=== PATIENT | male | born 1950 | race Caucasian/White ===

== ENCOUNTER 2020-04-16 11:22 | Inpatient (IN) | payer MEDICARE, OTHER ==
[~2020-04-16] VITALS: Ht 172.7 cm; Wt 64.4 kg
[2020-04-16] MEDS ORDERED: HALOPERIDOL LACTATE 5 MG/1 ML VIAL ONE (11:43)
[2020-04-16] MEDS ORDERED: HALOPERIDOL LACTATE 5 MG/1 ML VIAL IM ONE (11:45)
[2020-04-16] MEDS ORDERED: DIPH25CA83 PO (11:47)
[2020-04-16] MEDS ORDERED: DOCU100C36 PO (11:47)
[2020-04-16] MEDS ORDERED: LEVOTHYROXIN PO (11:47)
[2020-04-16] MEDS ORDERED: DIGO125T PO (11:47)
[2020-04-16] MEDS ORDERED: LISI10TA5 PO (11:47)
[2020-04-16] MEDS ORDERED: ACET-2154 PO (11:47)
[2020-04-16] MEDS ORDERED: SIMV-46 PO (11:47)
[2020-04-16] MEDS ORDERED: APIX5TAB PO (11:47)
[2020-04-16 11:54] LABS: BASOPHILS # (AUTO) 0.1 K/uL (0.0-8.0); BASOPHILS % (AUTO) 0.6 % (0.0-2.0); EOSINOPHILS % (AUTO) 0.4 % (0.0-7.0); HEMATOCRIT 40.8 % (36.7-47.1); HEMOGLOBIN 13.6 g/dL (12.5-16.3); LYMPHOCYTES # (AUTO) 1.4 K/uL (20.0-40.0); LYMPHOCYTES % (AUTO) 17.7 % (20.5-51.5); MEAN CORPUSCULAR HEMOGLOBIN 30.7 uug (23.8-33.4); MEAN CORPUSCULAR HGB CONC 33 g/dL (32.5-36.3); MEAN CORPUSCULAR VOLUME 92.4 fL (73.0-96.2); MONOCYTES # (AUTO) 0.6 K/uL (2.0-10.0); MONOCYTES % (AUTO) 7.4 % (0.0-11.0); NEUTROPHILS % (AUTO) 73.9 % (38.5-71.5); PLATELET COUNT (AUTO) 358 K/uL (152-348); RED BLOOD CELL COUNT(AUTO) 4.42 MIL/uL (4.06-5.63); WHITE BLOOD COUNT (AUTO) 8.1 K/uL (3.6-10.2)
[2020-04-16 12:01] LABS: CARBON DIOXIDE 27 mmol/L (21-32); CHLORIDE 107 mmol/L (98-107); CREATININE 0.9 mg/dL (0.6-1.3); GLUCOSE 117 mg/dL (74-106); UREA NITROGEN, BLOOD 23 mg/dL (7-18)
[2020-04-16 12:07] LABS: ACETAMINOPHEN < 2.0 ug/mL (10-30); ALANINE AMINOTRANSFERASE 28 U/L (16-63); ALKALINE PHOSPHATASE 67 U/L (50-136); ASPARTATE AMINOTRANSFERASE 31 U/L (15-37); BILIRUBIN,DIRECT 0.2 mg/dL (0.0-0.2); BILIRUBIN,TOTAL 0.5 mg/dL (0.2-1.0); TOTAL PROTEIN, SERUM 6.9 g/dL (6.4-8.2)
[2020-04-16 12:09] LABS: ETHANOL < 3 MG/DL (0-0)
[2020-04-16] MEDS ORDERED: LORAZEPAM 2 MG/1 ML VIAL IM ONE (12:15)
[2020-04-16] MEDS ORDERED: diphenhydrAMINE 50 MG/1 ML VIAL IM ONE (12:15)
[2020-04-16] MEDS ORDERED: diphenhydrAMINE 50 MG/1 ML VIAL ONE (12:17)
[2020-04-16] MEDS ORDERED: LORAZEPAM 2 MG/1 ML VIAL ONE (12:18)
[2020-04-16] MEDS ORDERED: MAG HYDROX/AL HYDROX/SIMETH 30 ML LIQUID UDC PO PRN (13:45)
[2020-04-16] MEDS ORDERED: ACETAMINOPHEN 325 MG TABLET PO PRN (13:45)
[2020-04-16] MEDS ORDERED: MAGNESIUM HYDROXIDE 30 ML LIQUID UDC PO PRN (13:45)
[2020-04-16] MEDS ORDERED: ACETAMINOPHEN 325 MG TABLET PO SCH (14:45)
[2020-04-16] MEDS ORDERED: diphenhydrAMINE 25 MG CAP PO PRN (16:30)
[2020-04-16] MEDS: APIXABAN 5 MG TABLET PO SCH (16:39)
[2020-04-16] MEDS ORDERED: DOCUSATE SODIUM 100 MG CAPSULE PO PRN (17:00)
[2020-04-16] MEDS: SIMVASTATIN 20 MG TABLET PO SCH (17:04)
[2020-04-16 19:00] VITALS: BP 167/86
[2020-04-16 20:27] VITALS: BP 160/80
[2020-04-17] MEDS: LEVOTHYROXINE SODIUM 50 MCG TABLET PO SCH (06:39)
[2020-04-17 07:30] VITALS: BP 132/74
[2020-04-17] MEDS: LISINOPRIL 10 MG TABLET PO SCH ×2 (08:32→09:00)
[2020-04-17] MEDS: APIXABAN 5 MG TABLET PO SCH ×3 (08:34→17:00)
[2020-04-17] MEDS ORDERED: HALOPERIDOL LACTATE 5 MG/1 ML VIAL IM ONE (09:45)
[2020-04-17] MEDS ORDERED: diphenhydrAMINE 50 MG/1 ML VIAL IM ONE (09:45)
[2020-04-17] MEDS ORDERED: LORAZEPAM 2 MG/1 ML VIAL IM ONE (09:45)
[2020-04-17] MEDS: risperiDONE 1 MG TABLET PO SCH ×2 (11:15→20:21)
[2020-04-17 16:00] VITALS: BP 145/79
[2020-04-17] MEDS: SIMVASTATIN 20 MG TABLET PO SCH (17:09)
[2020-04-17 20:14] VITALS: BP 133/83
[2020-04-18] MEDS: LEVOTHYROXINE SODIUM 50 MCG TABLET PO SCH (06:15)
[2020-04-18 07:30] VITALS: BP 144/66
[2020-04-18] MEDS: LISINOPRIL 10 MG TABLET PO SCH (09:00)
[2020-04-18] MEDS: risperiDONE 1 MG TABLET PO SCH ×2 (09:00→20:27)
[2020-04-18] MEDS: APIXABAN 5 MG TABLET PO SCH ×2 (09:00→17:00)
[2020-04-18] MEDS ORDERED: LORAZEPAM 2 MG/1 ML VIAL IM ONE (10:15)
[2020-04-18] MEDS ORDERED: HALOPERIDOL LACTATE 5 MG/1 ML VIAL IM ONE (10:15)
[2020-04-18] MEDS ORDERED: diphenhydrAMINE 50 MG/1 ML VIAL IM ONE (10:15)
[2020-04-18 16:00] VITALS: BP 134/77
[2020-04-18] MEDS: SIMVASTATIN 20 MG TABLET PO SCH (18:00)
[2020-04-18 20:00] VITALS: BP 133/86
[2020-04-19] MEDS: LEVOTHYROXINE SODIUM 50 MCG TABLET PO SCH (06:06)
[2020-04-19 07:30] VITALS: BP 136/80
[2020-04-19] MEDS: risperiDONE 1 MG TABLET PO SCH ×2 (09:35→21:11)
[2020-04-19] MEDS: LISINOPRIL 10 MG TABLET PO SCH (09:35)
[2020-04-19] MEDS: CLONAZEPAM 0.5 MG TABLET PO PRN (09:35)
[2020-04-19] MEDS: APIXABAN 5 MG TABLET PO SCH ×2 (09:42→17:00)
[2020-04-19] MEDS: DIGOXIN 125 MCG TABLET PO SCH (12:57)
[2020-04-19] MEDS: NICOTINE 21 MG/24HR PATCH TD SCH (14:18)
[2020-04-19 16:00] VITALS: BP 120/64
[2020-04-19] MEDS: SIMVASTATIN 20 MG TABLET PO SCH (18:00)
[2020-04-19] MEDS: TEMAZEPAM 7.5 MG CAPSULE PO PRN (22:21)
[2020-04-20 07:30] VITALS: BP 130/74
[2020-04-20] MEDS: LEVOTHYROXINE SODIUM 50 MCG TABLET PO SCH (07:45)
[2020-04-20] MEDS: APIXABAN 5 MG TABLET PO SCH ×2 (08:31→16:40)
[2020-04-20] MEDS: NICOTINE 21 MG/24HR PATCH TD SCH (08:31)
[2020-04-20] MEDS: risperiDONE 1 MG TABLET PO SCH ×2 (08:32→21:00)
[2020-04-20] MEDS: LISINOPRIL 10 MG TABLET PO SCH (08:32)
[2020-04-20] MEDS: DIGOXIN 125 MCG TABLET PO SCH (13:00)
[2020-04-20 16:50] VITALS: BP 123/69
[2020-04-20] MEDS: SIMVASTATIN 20 MG TABLET PO SCH (17:04)
[2020-04-20 19:57] VITALS: BP 130/62
[2020-04-21] MEDS: LEVOTHYROXINE SODIUM 50 MCG TABLET PO SCH (07:00)
[2020-04-21 07:30] VITALS: BP 135/67
[2020-04-21] MEDS: NICOTINE 21 MG/24HR PATCH TD SCH (08:28)
[2020-04-21] MEDS: LISINOPRIL 10 MG TABLET PO SCH (08:28)
[2020-04-21] MEDS: risperiDONE 1 MG TABLET PO SCH ×2 (08:28→20:35)
[2020-04-21] MEDS: APIXABAN 5 MG TABLET PO SCH ×2 (08:28→16:25)
[2020-04-21] MEDS: DIGOXIN 125 MCG TABLET PO SCH (12:21)
[2020-04-21 16:00] VITALS: BP 126/73
[2020-04-21] MEDS: SIMVASTATIN 20 MG TABLET PO SCH (17:03)
[2020-04-21 20:45] VITALS: BP 128/59
[2020-04-22] MEDS: LEVOTHYROXINE SODIUM 50 MCG TABLET PO SCH (06:28)
[2020-04-22 07:30] VITALS: BP 142/61
[2020-04-22] MEDS: NICOTINE 21 MG/24HR PATCH TD SCH (08:09)
[2020-04-22] MEDS: LISINOPRIL 10 MG TABLET PO SCH (08:09)
[2020-04-22] MEDS: APIXABAN 5 MG TABLET PO SCH ×2 (08:09→16:08)
[2020-04-22] MEDS: risperiDONE 1 MG TABLET PO SCH (08:09)
[2020-04-22] MEDS ORDERED: HALOPERIDOL 5 MG TABLET PO SCH (10:00)
[2020-04-22] MEDS ORDERED: HALOPERIDOL LACTATE 5 MG/1 ML VIAL IM PRN ×2 (10:00→11:00)
[2020-04-22] MEDS: CLONAZEPAM 0.5 MG TABLET PO PRN (10:42)
[2020-04-22] MEDS: DIGOXIN 125 MCG TABLET PO SCH (12:32)
[2020-04-22 15:20] VITALS: BP 125/66
[2020-04-22] MEDS: SIMVASTATIN 20 MG TABLET PO SCH (17:52)
[2020-04-22 20:00] VITALS: BP 125/71
[2020-04-22] MEDS: HALOPERIDOL 5 MG TABLET PO SCH (20:28)
[2020-04-23] MEDS: LEVOTHYROXINE SODIUM 50 MCG TABLET PO SCH (06:30)
[2020-04-23 07:30] VITALS: BP 150/86
[2020-04-23] MEDS: LISINOPRIL 10 MG TABLET PO SCH (08:03)
[2020-04-23] MEDS: APIXABAN 5 MG TABLET PO SCH ×2 (08:03→16:33)
[2020-04-23] MEDS: HALOPERIDOL 5 MG TABLET PO SCH ×2 (08:03→20:21)
[2020-04-23] MEDS: CLONAZEPAM 0.5 MG TABLET PO PRN (08:03)
[2020-04-23] MEDS: NICOTINE 21 MG/24HR PATCH TD SCH (08:04)
[2020-04-23] MEDS: DIGOXIN 125 MCG TABLET PO SCH (12:15)
[2020-04-23 16:10] VITALS: BP 120/73
[2020-04-23] MEDS: ENSURE ENLIVE (VAN) 240 ML LIQUID PO SCH (16:33)
[2020-04-23] MEDS: SIMVASTATIN 20 MG TABLET PO SCH (17:43)
[2020-04-23 20:00] VITALS: BP 114/53
[2020-04-24] MEDS: LEVOTHYROXINE SODIUM 50 MCG TABLET PO SCH (07:01)
[2020-04-24 07:30] VITALS: BP 127/44
[2020-04-24] MEDS: ENSURE ENLIVE (VAN) 240 ML LIQUID PO SCH ×2 (08:00→17:59)
[2020-04-24] MEDS: HALOPERIDOL 5 MG TABLET PO SCH ×3 (09:00→21:54)
[2020-04-24] MEDS: LISINOPRIL 10 MG TABLET PO SCH (09:54)
[2020-04-24] MEDS: NICOTINE 21 MG/24HR PATCH TD SCH (09:54)
[2020-04-24] MEDS: APIXABAN 5 MG TABLET PO SCH ×2 (10:11→17:59)
[2020-04-24] MEDS: DIGOXIN 125 MCG TABLET PO SCH (13:42)
[2020-04-24 16:00] VITALS: BP 119/63
[2020-04-24] MEDS: SIMVASTATIN 20 MG TABLET PO SCH (18:00)
[2020-04-24 20:10] VITALS: BP 120/53
[2020-04-25] MEDS: LEVOTHYROXINE SODIUM 50 MCG TABLET PO SCH (06:46)
[2020-04-25 07:30] VITALS: BP 119/64
[2020-04-25] MEDS: LISINOPRIL 10 MG TABLET PO SCH (08:49)
[2020-04-25] MEDS: HALOPERIDOL 5 MG TABLET PO SCH ×2 (08:49→20:29)
[2020-04-25] MEDS: NICOTINE 21 MG/24HR PATCH TD SCH (08:50)
[2020-04-25] MEDS: APIXABAN 5 MG TABLET PO SCH ×2 (11:43→18:32)
[2020-04-25] MEDS: DIGOXIN 125 MCG TABLET PO SCH (12:54)
[2020-04-25] MEDS: ENSURE ENLIVE (VAN) 240 ML LIQUID PO SCH ×2 (12:58→18:33)
[2020-04-25 16:35] VITALS: BP 109/66
[2020-04-25] MEDS: SIMVASTATIN 20 MG TABLET PO SCH (18:32)
[2020-04-25 21:05] VITALS: BP 130/68
[2020-04-26] MEDS: CLONAZEPAM 0.5 MG TABLET PO PRN (02:00)
[2020-04-26] MEDS: LEVOTHYROXINE SODIUM 50 MCG TABLET PO SCH (06:48)
[2020-04-26 07:30] VITALS: BP 108/50
[2020-04-26] MEDS: ENSURE ENLIVE (VAN) 240 ML LIQUID PO SCH ×2 (08:23→18:01)
[2020-04-26] MEDS: NICOTINE 21 MG/24HR PATCH TD SCH (08:36)
[2020-04-26] MEDS: HALOPERIDOL 5 MG TABLET PO SCH ×2 (08:37→20:44)
[2020-04-26] MEDS: APIXABAN 5 MG TABLET PO SCH ×2 (08:41→18:03)
[2020-04-26] MEDS: LISINOPRIL 10 MG TABLET PO SCH (08:42)
[2020-04-26] MEDS: DIGOXIN 125 MCG TABLET PO SCH (12:36)
[2020-04-26 15:27] VITALS: BP 112/61
[2020-04-26] MEDS: SIMVASTATIN 20 MG TABLET PO SCH (18:01)
[2020-04-26 20:00] VITALS: BP 126/60
[2020-04-27] MEDS: LEVOTHYROXINE SODIUM 50 MCG TABLET PO SCH (06:37)
[2020-04-27 07:30] VITALS: BP 121/77
[2020-04-27] MEDS: ENSURE ENLIVE (VAN) 240 ML LIQUID PO SCH ×2 (08:45→17:31)
[2020-04-27] MEDS: HALOPERIDOL 5 MG TABLET PO SCH ×2 (08:47→20:57)
[2020-04-27] MEDS: LISINOPRIL 10 MG TABLET PO SCH (08:48)
[2020-04-27] MEDS: NICOTINE 21 MG/24HR PATCH TD SCH (08:48)
[2020-04-27] MEDS: APIXABAN 5 MG TABLET PO SCH ×2 (09:04→17:38)
[2020-04-27] MEDS: DIGOXIN 125 MCG TABLET PO SCH (13:26)
[2020-04-27] MEDS: CLONAZEPAM 0.5 MG TABLET PO PRN (13:52)
[2020-04-27 16:00] VITALS: BP 137/66
[2020-04-27 17:06] LABS: BASOPHILS # (AUTO) 0.1 K/uL (0.0-8.0); BASOPHILS % (AUTO) 1.3 % (0.0-2.0); EOSINOPHILS # (AUTO) 0.1 K/uL (0.0-0.7); EOSINOPHILS % (AUTO) 1.1 % (0.0-7.0); HEMATOCRIT 45.1 % (36.7-47.1); HEMOGLOBIN 14.6 g/dL (12.5-16.3); LYMPHOCYTES # (AUTO) 2.1 K/uL (20.0-40.0); LYMPHOCYTES % (AUTO) 28.5 % (20.5-51.5); MEAN CORPUSCULAR HEMOGLOBIN 30.2 uug (23.8-33.4); MEAN CORPUSCULAR HGB CONC 32 g/dL (32.5-36.3); MEAN CORPUSCULAR VOLUME 93.6 fL (73.0-96.2); MONOCYTES # (AUTO) 0.8 K/uL (2.0-10.0); MONOCYTES % (AUTO) 11.2 % (0.0-11.0); NEUTROPHILS # (AUTO) 4.4 K/uL (1.8-8.9); NEUTROPHILS % (AUTO) 57.9 % (38.5-71.5); PLATELET COUNT (AUTO) 324 K/uL (152-348); RED BLOOD CELL COUNT(AUTO) 4.82 MIL/uL (4.06-5.63); WHITE BLOOD COUNT (AUTO) 7.5 K/uL (3.6-10.2)
[2020-04-27 17:13] LABS: BILIRUBIN,TOTAL 0.2 mg/dL (0.2-1.0); CREATININE 0.9 mg/dL (0.6-1.3); POTASSIUM 4.6 mmol/L (3.5-5.1); TOTAL PROTEIN, SERUM 7.6 g/dL (6.4-8.2)
[2020-04-27] MEDS: SIMVASTATIN 20 MG TABLET PO SCH (17:31)
[2020-04-27 20:00] VITALS: BP 127/67
[2020-04-28] MEDS: LEVOTHYROXINE SODIUM 50 MCG TABLET PO SCH (06:15)
[2020-04-28 07:30] VITALS: BP 109/64
[2020-04-28] MEDS: ENSURE ENLIVE (VAN) 240 ML LIQUID PO SCH ×2 (08:05→16:52)
[2020-04-28] MEDS: NICOTINE 21 MG/24HR PATCH TD SCH (08:19)
[2020-04-28] MEDS: HALOPERIDOL 5 MG TABLET PO SCH ×2 (08:19→20:35)
[2020-04-28] MEDS: APIXABAN 5 MG TABLET PO SCH ×2 (08:20→17:25)
[2020-04-28] MEDS: LISINOPRIL 10 MG TABLET PO SCH (08:34)
[2020-04-28] MEDS: DIGOXIN 125 MCG TABLET PO SCH (12:24)
[2020-04-28 15:22] VITALS: BP 110/54
[2020-04-28] MEDS: SIMVASTATIN 20 MG TABLET PO SCH (17:24)
[2020-04-28 20:26] VITALS: BP 107/58
[2020-04-29] MEDS: LEVOTHYROXINE SODIUM 50 MCG TABLET PO SCH (06:26)
[2020-04-29 07:30] VITALS: BP 112/60
[2020-04-29] MEDS: ENSURE ENLIVE (VAN) 240 ML LIQUID PO SCH ×2 (08:00→16:45)
[2020-04-29] MEDS: LISINOPRIL 10 MG TABLET PO SCH ×2 (09:00→09:47)
[2020-04-29] MEDS: NICOTINE 21 MG/24HR PATCH TD SCH (09:00)
[2020-04-29] MEDS: HALOPERIDOL 5 MG TABLET PO SCH ×3 (09:00→21:10)
[2020-04-29] MEDS: APIXABAN 5 MG TABLET PO SCH ×3 (09:00→16:44)
[2020-04-29] MEDS: DIGOXIN 125 MCG TABLET PO SCH (12:07)
[2020-04-29 15:45] VITALS: BP 110/56
[2020-04-29] MEDS: SIMVASTATIN 20 MG TABLET PO SCH (17:31)
[2020-04-29 20:00] VITALS: BP 116/69
[2020-04-29] MEDS: TEMAZEPAM 7.5 MG CAPSULE PO PRN ×2 (21:11→21:28)
[2020-04-30] MEDS: LEVOTHYROXINE SODIUM 50 MCG TABLET PO SCH (06:20)
[2020-04-30 07:48] VITALS: BP 122/77
[2020-04-30] MEDS: ENSURE ENLIVE (VAN) 240 ML LIQUID PO SCH ×2 (08:00→17:06)
[2020-04-30] MEDS: HALOPERIDOL 5 MG TABLET PO SCH ×2 (08:35→21:07)
[2020-04-30] MEDS: CLONAZEPAM 0.5 MG TABLET PO PRN (08:36)
[2020-04-30] MEDS: APIXABAN 5 MG TABLET PO SCH ×2 (08:36→17:00)
[2020-04-30] MEDS: LISINOPRIL 10 MG TABLET PO SCH (08:36)
[2020-04-30] MEDS: NICOTINE 21 MG/24HR PATCH TD SCH (08:37)
[2020-04-30] MEDS: DIGOXIN 125 MCG TABLET PO SCH (13:00)
[2020-04-30] MEDS: CLONAZEPAM 0.5 MG TABLET PO SCH ×2 (13:00→17:00)
[2020-04-30] MEDS: VALPROIC ACID 250 MG/5 ML LIQUID UDC PO SCH ×2 (15:06→21:07)
[2020-04-30 15:12] VITALS: BP 110/60
[2020-04-30] MEDS: SIMVASTATIN 20 MG TABLET PO SCH (17:07)
[2020-04-30 20:26] VITALS: BP 114/59
[2020-05-01] MEDS: LEVOTHYROXINE SODIUM 50 MCG TABLET PO SCH (07:02)
[2020-05-01 07:30] VITALS: BP 117/66
[2020-05-01] MEDS: ENSURE ENLIVE (VAN) 240 ML LIQUID PO SCH (08:00)
[2020-05-01] MEDS: HALOPERIDOL 5 MG TABLET PO SCH (08:29)
[2020-05-01] MEDS: CLONAZEPAM 0.5 MG TABLET PO SCH ×2 (08:29→12:12)
[2020-05-01] MEDS: VALPROIC ACID 250 MG/5 ML LIQUID UDC PO SCH (08:29)
[2020-05-01] MEDS: APIXABAN 5 MG TABLET PO SCH (08:31)
[2020-05-01] MEDS: NICOTINE 21 MG/24HR PATCH TD SCH (08:31)
[2020-05-01 09:00] VITALS: BP 117/66
[2020-05-01] MEDS: LISINOPRIL 10 MG TABLET PO SCH (09:00)
[2020-05-01] MEDS: DIGOXIN 125 MCG TABLET PO SCH (12:12)
== END 2020-05-01 15:01 | DRG 885 ==
LOC: ER 11:22 → GPS 13:33
PROVIDERS: ADMIT Psychiatry & Neurology Psychiatry; ATTEND Internal Medicine
PROC: 0HBRXZZ Excision of Toe Nail, External Approach (ICD-10-PCS; principal; 2020-04-29)
DX: F20.9 Schizophrenia, unspecified (principal); Z59.0 Homelessness; G20 Parkinson's disease; I48.0 Paroxysmal atrial fibrillation; Z79.01 Long term (current) use of anticoagulants; E03.9 Hypothyroidism, unspecified; E78.5 Hyperlipidemia, unspecified; F32.9 Major depressive disorder, single episode, unspecified; F41.9 Anxiety disorder, unspecified; I10 Essential (primary) hypertension; M20.41 Other hammer toe(s) (acquired), right foot; M20.42 Other hammer toe(s) (acquired), left foot; F29 Unspecified psychosis not due to a substance or known physiological condition; Z73.6 Limitation of activities due to disability; M62.81 Muscle weakness (generalized); F19.10 Other psychoactive substance abuse, uncomplicated; L60.3 Nail dystrophy; M79.672 Pain in left foot; M79.671 Pain in right foot
CPT/HCPCS: 36415; 80329; 83735; 85025; 93005; A4663; G0480; G0480-TC; J1200; J1630; J2060; Q0163

== ENCOUNTER 2020-07-23 16:29 | Inpatient (IN) | payer MEDICARE, OTHER ==
[2020-07-22 22:58] VITALS: BP 100/54
[~2020-07-23] VITALS: Ht 172.7 cm; Wt 70.8 kg
[~2020-07-23 16:29] MED LIST: ACET-2154 PO; APIX5TAB PO; DIGO125T PO; DIPH25CA83 PO; DOCU100C36 PO; LEVOTHYROXIN PO; LISI10TA5 PO; SIMV-46 PO
--- NOTE | 2020-07-23 16:44 | NUR ---
PT IS IN ROOM #2B. DR AGOSTO EVALUATED THE PT.
[2020-07-23] MEDS ORDERED: LORAZEPAM 2 MG/1 ML VIAL IM ONE (16:45)
[2020-07-23] MEDS ORDERED: diphenhydrAMINE 50 MG/1 ML VIAL IM ONE (16:45)
[2020-07-23] MEDS ORDERED: VALP250C3 PO (17:05)
[2020-07-23] MEDS ORDERED: MAGN400O6 PO (17:05)
[2020-07-23] MEDS ORDERED: HALO10TA13 PO (17:05)
[2020-07-23] MEDS ORDERED: MAG355OR18 PO (17:05)
[2020-07-23] MEDS ORDERED: CLON0.5T4 PO (17:05)
[2020-07-23] MEDS ORDERED: LORAZEPAM 2 MG/1 ML VIAL ONE (17:08)
[2020-07-23] MEDS ORDERED: diphenhydrAMINE 50 MG/1 ML VIAL ONE (17:08)
[2020-07-23] MEDS ORDERED: DILTIAZEM HCL 25 MG IV ONE (17:15)
[2020-07-23] MEDS ORDERED: DILTIAZEM HCL 25 MG IV IV ONE ×2 (17:15→17:45)
[2020-07-23] MEDS ORDERED: IV NORMAL SALINE 1000 ML BAG IV ONE (17:15)
[2020-07-23 17:27] LABS: BASOPHILS # (AUTO) 0.1 K/uL (0.0-8.0); BASOPHILS % (AUTO) 0.5 % (0.0-2.0); EOSINOPHILS % (AUTO) 0.3 % (0.0-7.0); HEMATOCRIT 45.3 % (36.7-47.1); HEMOGLOBIN 15.6 g/dL (12.5-16.3); LYMPHOCYTES # (AUTO) 2.3 K/uL (20.0-40.0); LYMPHOCYTES % (AUTO) 23.6 % (20.5-51.5); MEAN CORPUSCULAR HEMOGLOBIN 32.6 uug (23.8-33.4); MEAN CORPUSCULAR HGB CONC 34 g/dL (32.5-36.3); MEAN CORPUSCULAR VOLUME 94.8 fL (73.0-96.2); MONOCYTES # (AUTO) 0.9 K/uL (2.0-10.0); NEUTROPHILS # (AUTO) 6.6 K/uL (1.8-8.9); NEUTROPHILS % (AUTO) 66.6 % (38.5-71.5); PLATELET COUNT (AUTO) 254 K/uL (152-348); RED BLOOD CELL COUNT(AUTO) 4.78 MIL/uL (4.06-5.63); WHITE BLOOD COUNT (AUTO) 9.9 K/uL (3.6-10.2)
[2020-07-23] MEDS: NICOTINE 21 MG/24HR PATCH TD SCH (17:30)
[2020-07-23 17:45] LABS: ALANINE AMINOTRANSFERASE 16 U/L (16-63); ALKALINE PHOSPHATASE 46 U/L (50-136); ASPARTATE AMINOTRANSFERASE 11 U/L (15-37); BILIRUBIN,DIRECT 0.1 mg/dL (0.0-0.2); BILIRUBIN,TOTAL 0.4 mg/dL (0.2-1.0); CARBON DIOXIDE 26 mmol/L (21-32); CHLORIDE 101 mmol/L (98-107); ETHANOL < 3 MG/DL (0-0); GLUCOSE 114 mg/dL (74-106); POTASSIUM 4.1 mmol/L (3.5-5.1); TOTAL PROTEIN, SERUM 8.6 g/dL (6.4-8.2); UREA NITROGEN, BLOOD 16 mg/dL (7-18)
[2020-07-23 17:46] LABS: ACETAMINOPHEN < 2.0 ug/mL (10-30)
[2020-07-23 18:29] LABS: *BILIRUBIN,URIN NEGATIVE (NEGATIVE); *BLOOD, URINE NEGATIVE (NEGATIVE); *CLARITY,URINE CLEAR (CLEAR); *COLOR,URINE YELLOW (YELLOW); *KETONES,URINE NEGATIVE (NEGATIVE); *UROBILINOGEN,URINE 0.2 E.U./dl (NORMAL); LEUKOCYTE ESTERASE ,URINE NEGATIVE (NEGATIVE); NITRITE, URINE NEGATIVE (NEGATIVE); UGLUCOSE NEGATIVE (NEGATIVE)
[2020-07-23] MEDS ORDERED: DIGOXIN 500 MCG/2 ML AMP IV ONE (18:30)
[2020-07-23 18:32] LABS: *AMPHETAMINE, URINE NEGATIVE (NEGATIVE); *CANNABINOID, URINE NEGATIVE (NEGATIVE); *COCCAINE, URINE NEGATIVE (NEGATIVE); *OPIATE, URINE NEGATIVE (NEGATIVE); *PHENCYCLIDINE SCREEN,URINE NEGATIVE (NEGATIVE)
[2020-07-23] MEDS ORDERED: DIGOXIN 500 MCG/2 ML AMP ONE (18:43)
[2020-07-23] MEDS ORDERED: HALOPERIDOL LACTATE 5 MG/1 ML VIAL IM ONE (19:00)
[2020-07-23] MEDS ORDERED: HALOPERIDOL LACTATE 5 MG/1 ML VIAL ONE (19:02)
--- NOTE | 2020-07-23 19:06 | NUR ---
REPORT GIVEN TO SCHOOL ATTENDANCE SECRETARY RN.
--- NOTE | 2020-07-23 19:30 | NUR ---
Security at bedside sitting with patient, patient exhibiting aggressive outbursts and patient keeps getting out of bed and poses a fall risk. ERMD aware
[2020-07-23] MEDS ORDERED: MAGNESIUM HYDROXIDE 30 ML LIQUID UDC PO PRN ×2 (19:45)
[2020-07-23] MEDS ORDERED: Z GUARD REMEDY PASTE 57 GM TUBE TOP PRN (19:45)
[2020-07-23] MEDS: CLONAZEPAM 0.5 MG TABLET PO SCH (19:45)
[2020-07-23] MEDS ORDERED: MAG HYDROX/AL HYDROX/SIMETH 30 ML LIQUID UDC PO PRN (19:45)
[2020-07-23] MEDS: LISINOPRIL 10 MG TABLET PO SCH (19:45)
[2020-07-23] MEDS: ACETAMINOPHEN 325 MG TABLET PO SCH (19:45)
[2020-07-23] MEDS ORDERED: SIMVASTATIN 20 MG TABLET PO SCH (19:45)
[2020-07-23] MEDS ORDERED: ONDANSETRON 4 MG/2 ML VIAL IV PRN (19:45)
[2020-07-23] MEDS ORDERED: ACETAMINOPHEN 325 MG TABLET PO PRN (19:45)
--- NOTE | 2020-07-23 20:24 | NUR ---
Patient in bed resting with eyes closed, VSS, NAD
--- NOTE | 2020-07-23 21:00 | NUR ---
Patient in bed asleep, but arousable. VSS, NAD. Will continue to monitor.
--- NOTE | 2020-07-23 21:39 | NUR ---
Report given to ANDREA Márquez. Patient pending COVID test. Will continue to observe, and monitor until lab has resulted test.
--- NOTE | 2020-07-23 21:39 | NUR ---
Report received from Gerardo in ER. Waiting for patient to be transported.
[2020-07-23] MEDS ORDERED: ACETAMINOPHEN 325 MG TABLET ONE (22:11)
[2020-07-23] MEDS ORDERED: SIMVASTATIN 10 MG TABLET ONE (22:12)
[2020-07-23] MEDS ORDERED: CLONAZEPAM 0.5 MG TABLET ONE (22:12)
--- NOTE | 2020-07-23 22:55 | NUR ---
Patient received in Room 308 from Gerardo MENDEZ. Patient stable. Will continue to monitor.
--- NOTE | 2020-07-23 22:58 | NUR ---
Patient transported to TELE in stable condition.
[2020-07-23] MEDS: HALOPERIDOL 5 MG TABLET PO SCH (23:00)
[2020-07-23] MEDS ORDERED: DOCUSATE SODIUM 250 MG CAPSULE PO SCH (23:00)
[2020-07-23] MEDS ORDERED: DOCUSATE SODIUM 250 MG CAPSULE PO PRN (23:15)
[2020-07-23] MEDS: DIGOXIN 125 MCG TABLET PO SCH (23:17)
--- NOTE | 2020-07-23 23:20 | NUR ---
Pts haldol/digoxin were held due to patient being lethargic and not being able to take pills. BP at the time was 106/48. Will continue to assess and monitor.
--- NOTE | 2020-07-24 | NUR ---
Patient asleep but easily awakened. VSS. NAD. Will continue to monitor.
[2020-07-24 00:08] VITALS: BP 104/48
[2020-07-24] MEDS: LISINOPRIL 10 MG TABLET PO SCH ×3 (00:13→08:37)
[2020-07-24] MEDS: ACETAMINOPHEN 325 MG TABLET PO SCH ×6 (00:14→15:59)
--- NOTE | 2020-07-24 01:26 | NUR ---
Pts lisinopril was held due to the patient being too sedated. BP at time of hold was 104/48 - temp - 98.1 pulse - 98 rr- 18. Will continue to monitor and assess.
--- NOTE | 2020-07-24 02:00 | NUR ---
Patient asleep but awakens easily to stimulus/sound. No signs of pain. VSS. HR hovering in the 60s, 65 at the moment. Will continue to monitor and assess.
--- NOTE | 2020-07-24 03:45 | NUR ---
Pts Tylenol was held due to the patient being too sedated and at risk for aspiration. Temperature at the time of hold was 97.6 Will continue to monitor and assess.
[2020-07-24 06:19] LABS: BASOPHILS % (AUTO) 0.4 % (0.0-2.0); EOSINOPHILS # (AUTO) 0.2 K/uL (0.0-0.7); EOSINOPHILS % (AUTO) 2.5 % (0.0-7.0); HEMATOCRIT 37.5 % (36.7-47.1); LYMPHOCYTES # (AUTO) 3.3 K/uL (20.0-40.0); LYMPHOCYTES % (AUTO) 44.5 % (20.5-51.5); MEAN CORPUSCULAR HGB CONC 35 g/dL (32.5-36.3); MEAN CORPUSCULAR VOLUME 95.5 fL (73.0-96.2); MONOCYTES # (AUTO) 0.6 K/uL (2.0-10.0); MONOCYTES % (AUTO) 7.7 % (0.0-11.0); NEUTROPHILS # (AUTO) 3.4 K/uL (1.8-8.9); NEUTROPHILS % (AUTO) 44.9 % (38.5-71.5); PLATELET COUNT (AUTO) 213 K/uL (152-348); RED BLOOD CELL COUNT(AUTO) 3.93 MIL/uL (4.06-5.63); WHITE BLOOD COUNT (AUTO) 7.5 K/uL (3.6-10.2)
--- NOTE | 2020-07-24 06:20 | NUR ---
Pt has been asleep but easily awoken to touch, name. No reports of pain, no distress, VSS, HOB elevated, no SOB. IV patent. Will endorse to oncoming nurse.
[2020-07-24 06:46] LABS: THYROID STIMULATING HORMONE 2.082 mIU/mL (0.358-3.740)
[2020-07-24 06:48] LABS: BILIRUBIN,TOTAL 0.5 mg/dL (0.2-1.0); PHOSPHOROUS 4.1 mg/dL (2.5-4.9); POTASSIUM 4.4 mmol/L (3.5-5.1); TOTAL PROTEIN, SERUM 6.4 g/dL (6.4-8.2)
[2020-07-24] MEDS ORDERED: LEVOTHYROXINE SODIUM 50 MCG TABLET PO SCH (07:00)
--- NOTE | 2020-07-24 07:30 | NUR ---
Patient received resting in bed. Patient is really sedated and sleepy. Patient has a 1:1 sitter . There is no sign of distress noted at this time. Safety measures are in place, bed in the lowest position, locked with alarm activated. will continue to monitor.
[2020-07-24] MEDS: NICOTINE 21 MG/24HR PATCH TD SCH (08:35)
[2020-07-24] MEDS: CLONAZEPAM 0.5 MG TABLET PO SCH ×2 (08:36→12:10)
[2020-07-24] MEDS: HALOPERIDOL 5 MG TABLET PO SCH (08:36)
[2020-07-24] MEDS: DIGOXIN 125 MCG TABLET PO SCH (08:37)
[2020-07-24 08:38] VITALS: BP 107/65
[2020-07-24] MEDS ORDERED: VALPROIC ACID 250 MG CAPSULE PO SCH (09:00)
[2020-07-24] MEDS ORDERED: APIXABAN 5 MG TABLET PO SCH (11:00)
[2020-07-24 11:29] VITALS: BP 110/52
--- NOTE | 2020-07-24 12:30 | NUR ---
Patient was a little agitated, he refused to answer any questions and was yelling obscenities at the nursing staff. Gave all his medications. Will continue to monitor.
[2020-07-24 15:02] VITALS: BP 94/46
--- NOTE | 2020-07-24 17:00 | NUR ---
All medications given as ordered, therapeutic communication was encouraged with patient at all times. Patient discharged from the medical surgical unit and will be admitted to the [facility] unit on a 5150 hold. All discharge paperwork completed. Will continue to monitor patient until report is given to the change of shift nurse.
== END 2020-07-24 16:53 | DRG 309 ==
LOC: ER 16:31 → TELE3 22:38 → MEDSURG3 07-24 13:11
PROVIDERS: ADMIT Internal Medicine; ATTEND Internal Medicine
DX: I48.0 Paroxysmal atrial fibrillation (principal); D68.69 Other thrombophilia; I48.92 Unspecified atrial flutter; F20.9 Schizophrenia, unspecified; F32.9 Major depressive disorder, single episode, unspecified; F41.9 Anxiety disorder, unspecified; I10 Essential (primary) hypertension; Z79.01 Long term (current) use of anticoagulants
CPT/HCPCS: 36415; 70030-TC; 71045; 83735; 84100; 84443; 85025; 85730; 93005; 93307; G0378; G0480; J1160; J1200; J1630; J2060; J3490

== ENCOUNTER 2020-07-24 17:18 | Inpatient (IN) | payer MEDICARE, OTHER ==
[~2020-07-24] VITALS: Ht 177.8 cm; Wt 71.2 kg
--- NOTE | 2020-07-24 17:00 | NUR ---
Patient was discharged from the medical surgical floor and placed into [facility] overflow. He is now resting in bed. Initial assessment done but patient is not a good historian. He has been sleeping intermittently throughout the day. All medications given as ordered and therapeutic communication reinforced. Belongings list done. Will endorse to the oncoming nurse.
[~2020-07-24 17:18] MED LIST changes: +CLON0.5T4 PO; -DIPH25CA83 PO; +HALO10TA13 PO; +MAG355OR18 PO; +MAGN400O6 PO; +VALP250C3 PO
[2020-07-24] MEDS ORDERED: ACETAMINOPHEN 325 MG TABLET PO PRN (17:30)
[2020-07-24] MEDS ORDERED: LORAZEPAM 0.5 MG TABLET PO PRN (17:30)
[2020-07-24] MEDS ORDERED: MAG HYDROX/AL HYDROX/SIMETH 30 ML LIQUID UDC PO PRN ×2 (17:30→18:30)
[2020-07-24] MEDS ORDERED: MAGNESIUM HYDROXIDE 30 ML LIQUID UDC PO PRN ×2 (17:30→18:30)
[2020-07-24 18:02] VITALS: BP 104/56
[2020-07-24] MEDS ORDERED: ACETAMINOPHEN 325 MG TABLET PO SCH (18:30)
[2020-07-24] MEDS ORDERED: DOCUSATE SODIUM 100 MG CAPSULE PO PRN (18:30)
--- NOTE | 2020-07-24 19:30 | NUR ---
Received patient sleeping intermittently in bed. Engages in conversation when approached. Sitter at bed side and safety measures in place. Will continue to monitor.
--- NOTE | 2020-07-24 19:40 | NUR ---
Per pharmacist Satish naqvi to give second Eliquis dose at 07/24
[2020-07-24] MEDS: SIMVASTATIN 20 MG TABLET PO SCH (20:08)
[2020-07-24] MEDS: APIXABAN 5 MG TABLET PO SCH (20:09)
[2020-07-24 20:12] VITALS: BP 109/58
[2020-07-24] MEDS ORDERED: DIVALPROEX 500 MG TABLET.DR PO SCH (21:00)
[2020-07-24] MEDS ORDERED: HALOPERIDOL 5 MG TABLET PO SCH (21:00)
[2020-07-24] MEDS ORDERED: VALPROIC ACID 250 MG CAPSULE PO SCH (21:00)
--- NOTE | 2020-07-24 22:10 | NUR ---
GPS: Received pt.from 3rd floor resting in bed at this time. Alert,answers simple questions when asked. Calm and cooperative at this time although refusing PO bedtime psych meds.despite explanation of risks vs benefits x3. Safe environment provided. Needs attended. Will continue to monitor.
[2020-07-25] MEDS: LEVOTHYROXINE SODIUM 50 MCG TABLET PO SCH (06:43)
[2020-07-25] MEDS: DIVALPROEX 500 MG TABLET.DR PO SCH ×2 (09:00→21:00)
[2020-07-25] MEDS: APIXABAN 5 MG TABLET PO SCH ×2 (09:00→17:00)
[2020-07-25] MEDS: LISINOPRIL 10 MG TABLET PO SCH (09:00)
[2020-07-25] MEDS: HALOPERIDOL 5 MG TABLET PO SCH ×2 (09:00→21:00)
[2020-07-25] MEDS: DIGOXIN 125 MCG TABLET PO SCH (09:00)
--- NOTE | 2020-07-25 09:10 | NUR ---
SW SNF CONTACT: TRACE contacted Deepak, admission coordinator at [facility] ([facility]) [address] [place] [address] P: [phone] who confirmed pt is able to return to the facility once stable for discharge.
--- NOTE | 2020-07-25 09:57 | NUR ---
TRACE INITIAL DISCHARGE PLAN: Pt will return to [facility] ([facility]) [address] [address] [place] [address] P: [phone] once stable for discharge. TRACE will help form a safe and proper discharge in collaboration with .
--- NOTE | 2020-07-25 11:38 | NUR ---
Firearms Report: Scuba Instructor completed and submitted a DOJ firearms report for 5150 danger to others and grave disability certification. A copy of report has been placed in patient chart.
[2020-07-25] MEDS: NICOTINE 21 MG/24HR PATCH TD SCH (12:09)
[2020-07-25] MEDS ORDERED: diphenhydrAMINE 50 MG/1 ML VIAL IM ONE (14:00)
[2020-07-25] MEDS ORDERED: HALOPERIDOL LACTATE 5 MG/1 ML VIAL IM ONE (14:00)
[2020-07-25] MEDS ORDERED: LORAZEPAM 2 MG/1 ML VIAL IM ONE (14:00)
--- NOTE | 2020-07-25 14:05 | NUR ---
GPS: Severe Agitation/Chemical restraint Pt noted with severe agitation, yelling, screaming, cursing and threatening staff. Attempted to provide diversional activities and allow to verbalize feelings. Pt. continued with violent outburst without provocation and posing aggressive/combative stance toward nursing staff. Pt. unable to follow directions and has poor impulse/anger management. Dr. Starks was paged by charge nurse and received chemical restraint order carried out by charge nurse.
--- NOTE | 2020-07-25 14:10 | NUR ---
GPS: chemical restraint intervention. 4x security on-site to assist as pt. continue to be combative, cursing and threatening. Pt. stated "I do not take medications motherfuckers!, Im going to kick your ass, I dont care what you give me I will still scream and yell" several other profanity words used repeatedly towards nsg staff and security personnel. IM Haldol, Ativan, Benadryl given as ordered by Dr. Starks. Due to pt. behaviors, nsg staff unable to assess full vitals signs. Will monitor respiratory rate. Addendum: 07/25/20 at 1547 by DEANNA DEMARCO RN Dr. Starks aware that pt. has refused his morning medications.
--- NOTE | 2020-07-25 14:10 | NUR ---
INDIVIDUAL INTERVENTION: Pt is verbally aggressive, yelling, screaming, banging the uribe. Security was called and pt was given an IM. Pt has been refusing medications and is psychotic.
--- NOTE | 2020-07-25 15:00 | NUR ---
GPS: Reassessment of chemical restraint: Pt. with intermittent yelling/screaming, slightly less aggressive. IM medication partially effective. Allowed nsg staff to take set of V/S. To be place on 1:1 sitter for safety. Will continue to monitor pt. safety and behavior.
[2020-07-25 16:00] VITALS: BP 99/48
[2020-07-25 20:00] VITALS: BP 102/54
[2020-07-25] MEDS: SIMVASTATIN 20 MG TABLET PO SCH (21:00)
--- NOTE | 2020-07-25 22:00 | NUR ---
Patient refused Haldol 10mg and depakote 500mg. multiple redirection given yet ineffective. will continue to monitor.
[2020-07-26] MEDS: LEVOTHYROXINE SODIUM 50 MCG TABLET PO SCH (06:49)
[2020-07-26 07:30] VITALS: BP 134/77
[2020-07-26] MEDS: NICOTINE 21 MG/24HR PATCH TD SCH (08:13)
[2020-07-26] MEDS: APIXABAN 5 MG TABLET PO SCH ×2 (08:15→17:00)
[2020-07-26] MEDS: DIVALPROEX 500 MG TABLET.DR PO SCH ×2 (08:15→21:00)
[2020-07-26] MEDS: DIGOXIN 125 MCG TABLET PO SCH (08:16)
[2020-07-26] MEDS: LISINOPRIL 10 MG TABLET PO SCH (08:16)
[2020-07-26] MEDS: HALOPERIDOL 5 MG TABLET PO SCH ×2 (08:16→21:00)
--- NOTE | 2020-07-26 11:31 | NUR ---
INDIVIDUAL INTERVENTION: Pt is currently on a 1:1 and was given IM on 08/25/20 and pt has been refusing medications. Pt is asleep and not easily roused by verbal cues.
[2020-07-26] MEDS: ENSURE WITH FIBER 237 ML LIQUID (CHOCOLATE) PO SCH (14:00)
[2020-07-26 16:00] VITALS: BP 124/84
[2020-07-26 20:31] VITALS: BP 119/85
[2020-07-26] MEDS: SIMVASTATIN 20 MG TABLET PO SCH (21:00)
--- NOTE | 2020-07-26 21:44 | NUR ---
GPS - Rn Patient a/ox2, respond verbally and clearly able to make needs known. Pt noncooperative with routine medications, refused and said 'I have never took medication before, they do not do you good' why don't you take them rather! Pt insist he is not taking meds. Patient was becoming agitated and rising his voice at this senior copywriter. Re-offered later and he said no. Patient at this time calm and lying in bed. Will monitor with anticipating changes or behavior increase.
[2020-07-27] MEDS: TEMAZEPAM 7.5 MG CAPSULE PO PRN (02:30)
[2020-07-27] MEDS: LEVOTHYROXINE SODIUM 50 MCG TABLET PO SCH (06:50)
[2020-07-27 07:30] VITALS: BP 133/85
[2020-07-27] MEDS: DIVALPROEX 500 MG TABLET.DR PO SCH ×2 (08:20→20:21)
[2020-07-27] MEDS: HALOPERIDOL 5 MG TABLET PO SCH ×2 (08:20→20:21)
[2020-07-27] MEDS: LISINOPRIL 10 MG TABLET PO SCH (08:20)
[2020-07-27] MEDS: NICOTINE 21 MG/24HR PATCH TD SCH (08:21)
[2020-07-27] MEDS: DIGOXIN 125 MCG TABLET PO SCH (08:21)
[2020-07-27] MEDS: APIXABAN 5 MG TABLET PO SCH ×2 (08:32→16:02)
[2020-07-27] MEDS: ENSURE WITH FIBER 237 ML LIQUID (CHOCOLATE) PO SCH (08:40)
[2020-07-27 16:33] VITALS: BP 99/79
--- NOTE | 2020-07-27 17:58 | NUR ---
Received patient in his room, calm cooperative, patient appears to be anxious, reported of being non compliant with medication and RIESE was filed, spoke with patient about his concern on medication, and re assure of the benefits of the medication, patient took his medication today, took shower , assisted with ADl, met patients need, no sign of any Distress, denies Si and HI, will continue monitor Q 15 minutes for safety
[2020-07-27 20:05] VITALS: BP 106/58
[2020-07-27] MEDS: SIMVASTATIN 20 MG TABLET PO SCH (20:21)
--- NOTE | 2020-07-28 05:47 | NUR ---
GPS: Remain calm and cooperative, patient appears to be anxious, compliant with medications. assisted with ADl, met patients need, no sign of any Distress, denies Si and HI, resting in his bed comfortably.
[2020-07-28] MEDS: LEVOTHYROXINE SODIUM 50 MCG TABLET PO SCH (06:44)
--- NOTE | 2020-07-28 06:50 | NUR ---
slept 7 hrs through the night.
[2020-07-28 07:52] VITALS: BP 102/56
[2020-07-28] MEDS: LISINOPRIL 10 MG TABLET PO SCH (09:00)
[2020-07-28] MEDS: NICOTINE 21 MG/24HR PATCH TD SCH (10:11)
[2020-07-28] MEDS: HALOPERIDOL 5 MG TABLET PO SCH ×2 (10:11→20:40)
[2020-07-28] MEDS: DIGOXIN 125 MCG TABLET PO SCH (10:11)
[2020-07-28] MEDS: DIVALPROEX 500 MG TABLET.DR PO SCH ×2 (10:11→20:40)
[2020-07-28] MEDS: APIXABAN 5 MG TABLET PO SCH ×2 (10:12→17:38)
[2020-07-28] MEDS: ENSURE WITH FIBER 237 ML LIQUID (CHOCOLATE) PO SCH (10:13)
[2020-07-28 16:27] VITALS: BP 130/49
[2020-07-28 20:21] VITALS: BP 118/51
[2020-07-28] MEDS: SIMVASTATIN 20 MG TABLET PO SCH (20:40)
--- NOTE | 2020-07-29 06:25 | NUR ---
Patient took his pm medications. A little while after, patient came to the nurses station and said " That is it, I am not going to take anymore medications. Do not bother to bring me any. I have had it with medications, they are poisoning me ". Patient refused his am Thyroid medication, and was easy to anger . Patient is labile. Total hours of sleep 7.30.
[2020-07-29] MEDS: LEVOTHYROXINE SODIUM 50 MCG TABLET PO SCH (06:38)
[2020-07-29 07:30] VITALS: BP 140/99
[2020-07-29] MEDS: DIGOXIN 125 MCG TABLET PO SCH (08:51)
[2020-07-29] MEDS: HALOPERIDOL 5 MG TABLET PO SCH ×4 (08:51→21:00)
[2020-07-29] MEDS: NICOTINE 21 MG/24HR PATCH TD SCH (08:51)
[2020-07-29] MEDS: APIXABAN 5 MG TABLET PO SCH ×2 (08:52→16:32)
[2020-07-29] MEDS: LISINOPRIL 10 MG TABLET PO SCH (08:52)
[2020-07-29] MEDS: ENSURE WITH FIBER 237 ML LIQUID (CHOCOLATE) PO SCH (08:54)
[2020-07-29] MEDS: DIVALPROEX 500 MG TABLET.DR PO SCH ×3 (08:55→21:00)
[2020-07-29] MEDS ORDERED: HALOPERIDOL DECANOATE 50 MG/1 ML AMPUL IM ONE (09:00)
--- NOTE | 2020-07-29 11:51 | NUR ---
TRACE PC Hearing: Patient had probable cause hearing today and it was upheld for grave disability.
[2020-07-29 16:00] VITALS: BP 129/107
[2020-07-29 20:24] VITALS: BP 136/90
[2020-07-29] MEDS: SIMVASTATIN 20 MG TABLET PO SCH ×4 (20:26→21:00)
--- NOTE | 2020-07-30 02:26 | NUR ---
RECEIVED PATIENT IN BED. ISOLATIVE AND WITHDRAWN. UNABLE TO GET HIM TO ENGAGE. IRRITABLE . REFUSED ALL MEDS SAYING "AM NOT GOING TO TAKE THEM ANYMORE. THEY ARE POISON' I HAVE ALREADY HAD AN INJECTION.WHAT NOW'. SAFETY PROTOCOLS IN PLACE. WILL CONTINUE TO MONITOR.
--- NOTE | 2020-07-30 06:43 | NUR ---
SLEPT FOR 7 HOURS.
[2020-07-30] MEDS: LEVOTHYROXINE SODIUM 50 MCG TABLET PO SCH (06:51)
[2020-07-30] MEDS: NICOTINE 21 MG/24HR PATCH TD SCH (08:34)
[2020-07-30] MEDS: DIVALPROEX 500 MG TABLET.DR PO SCH ×3 (08:35→20:56)
[2020-07-30] MEDS: HALOPERIDOL 5 MG TABLET PO SCH ×3 (08:35→20:56)
[2020-07-30] MEDS: DIGOXIN 125 MCG TABLET PO SCH (08:36)
[2020-07-30] MEDS: APIXABAN 5 MG TABLET PO SCH ×2 (08:38→16:42)
[2020-07-30] MEDS: ENSURE WITH FIBER 237 ML LIQUID (CHOCOLATE) PO SCH (08:39)
[2020-07-30 09:12] LABS: BILIRUBIN,TOTAL 0.7 mg/dL (0.2-1.0); CREATININE 1.1 mg/dL (0.6-1.3); POTASSIUM 4.8 mmol/L (3.5-5.1); TOTAL PROTEIN, SERUM 6.9 g/dL (6.4-8.2)
[2020-07-30 09:20] LABS: THYROID STIMULATING HORMONE 0.801 mIU/mL (0.358-3.740)
[2020-07-30 09:27] VITALS: BP 105/60
[2020-07-30] MEDS: LISINOPRIL 10 MG TABLET PO SCH (09:39)
--- NOTE | 2020-07-30 15:00 | NUR ---
PATIENT IS SELECTIVE IN HIS MEDICATIONS REFUSING THE PSYCH DRUGS BUT WILL TAKE OTHER MEDS PATIENT EDUCATED AND ADVISED TO TAKE HIS PSYCH MEDS SO THAT HE CAN FEEL BETTER AND BE ABLE TO GO HOME STATED THESE PSYCH MEDS ARE NOT GOOD FOR HIM.
[2020-07-30 16:44] VITALS: BP 146/76
[2020-07-30 20:11] VITALS: BP 95/48
[2020-07-30] MEDS: SIMVASTATIN 20 MG TABLET PO SCH (20:57)
--- NOTE | 2020-07-30 21:48 | NUR ---
awake alert and oriented x 3-4 On 14 day hold. No aggressive behavior noted. VSS. Refused meds. Needs attended. Will monitor patient.Kept comfortable. Addendum: 07/31/20 at 0634 by LEOBARDO MONTANA RN Had 10 1/2 hours of sleep. No acute distress noted. No signs of agitation or restlessness noted. Took synthroid this am.
[2020-07-31] MEDS: LEVOTHYROXINE SODIUM 50 MCG TABLET PO SCH (06:30)
--- NOTE | 2020-07-31 06:38 | NUR ---
Had 10 1/2 hours of sleep this shift. No acute distress noted. No agitation noted. Took his synthroid this am. No complaints presented during shift. Will monitor patient.
[2020-07-31 07:30] VITALS: BP 112/64
[2020-07-31] MEDS: ENSURE WITH FIBER 237 ML LIQUID (CHOCOLATE) PO SCH (08:07)
[2020-07-31] MEDS: NICOTINE 21 MG/24HR PATCH TD SCH (08:07)
[2020-07-31] MEDS: LISINOPRIL 10 MG TABLET PO SCH (08:07)
[2020-07-31] MEDS: APIXABAN 5 MG TABLET PO SCH ×2 (08:08→16:11)
[2020-07-31] MEDS: DIGOXIN 125 MCG TABLET PO SCH ×2 (08:08→10:53)
[2020-07-31] MEDS: HALOPERIDOL 5 MG TABLET PO SCH ×3 (08:12→20:34)
[2020-07-31] MEDS: DIVALPROEX 500 MG TABLET.DR PO SCH ×3 (08:12→20:35)
--- NOTE | 2020-07-31 08:48 | NUR ---
pt refused félix and murray escoto md made aware
--- NOTE | 2020-07-31 15:07 | NUR ---
SW Individual Intervention: SW met with patient to provide brief individual counseling and address patient's aggressive behavior. Patient presents guarded, withdrawn and isolative. SW attempted to engage in a meaningful conversation with the patient however patient refused to speak to this older adult social work specialist at this time. Patient stated "I really enjoyed group but I am tired and don't want to talk much more". SW will continue to remain available for patient and provide interventions as needed.
[2020-07-31 16:00] VITALS: BP 107/56
--- NOTE | 2020-07-31 17:08 | NUR ---
received patient AOx2-3, patient was initially refusing his medication, spoke with the patient and educate him about med, after explaining him about the medication patient verbalizes understanding and agree to take his medication continue to follow up and monitor, patient approach the newspaper writer and says " i need to speak to the medical doctor , i have been hearing voices , its a female voice calling me , Im not sure if i need to share this information with my Psychiatrist", patient added, asked if what the voice is telling him, " the voice is calling me fabien, notified MD regarding the behavior, no sign of distress , denies SI and HI
[2020-07-31 20:05] VITALS: BP 119/72
[2020-07-31] MEDS: SIMVASTATIN 20 MG TABLET PO SCH (20:34)
[2020-08-01] MEDS: LEVOTHYROXINE SODIUM 50 MCG TABLET PO SCH (06:32)
[2020-08-01 07:30] VITALS: BP 113/58
[2020-08-01] MEDS: DIVALPROEX 500 MG TABLET.DR PO SCH ×2 (08:23→20:23)
[2020-08-01] MEDS: NICOTINE 21 MG/24HR PATCH TD SCH (08:23)
[2020-08-01] MEDS: ENSURE WITH FIBER 237 ML LIQUID (CHOCOLATE) PO SCH (08:24)
[2020-08-01] MEDS: HALOPERIDOL 5 MG TABLET PO SCH ×2 (08:24→20:24)
[2020-08-01] MEDS: APIXABAN 5 MG TABLET PO SCH ×2 (08:43→16:04)
[2020-08-01] MEDS: DIGOXIN 125 MCG TABLET PO SCH (08:48)
[2020-08-01] MEDS: LISINOPRIL 10 MG TABLET PO SCH (09:00)
[2020-08-01] MEDS ORDERED: NICOTINE 21 MG/24HR PATCH TD SCH (12:00)
[2020-08-01] MEDS ORDERED: NICOTINE 21 MG/24HR PATCH TD ONE (12:00)
[2020-08-01 16:11] VITALS: BP 103/48
--- NOTE | 2020-08-01 18:06 | NUR ---
received patient AOx2-3, patient calm cooperative , patient isolative, labile, compliant with medication, took his shower and shave today, patient needed reassurance regarding on his 5250 hold, patient was upset with the hold , no sign of distress at this time
[2020-08-01 20:23] VITALS: BP 117/59
[2020-08-01] MEDS: SIMVASTATIN 20 MG TABLET PO SCH (20:23)
[2020-08-02] MEDS: LEVOTHYROXINE SODIUM 50 MCG TABLET PO SCH (06:32)
[2020-08-02 07:30] VITALS: BP 104/48
[2020-08-02] MEDS: NICOTINE 21 MG/24HR PATCH TD SCH (08:28)
[2020-08-02] MEDS: HALOPERIDOL 5 MG TABLET PO SCH ×2 (08:28→20:09)
[2020-08-02] MEDS: DIVALPROEX 500 MG TABLET.DR PO SCH ×2 (08:28→20:09)
[2020-08-02] MEDS: DIGOXIN 125 MCG TABLET PO SCH (08:28)
[2020-08-02] MEDS: APIXABAN 5 MG TABLET PO SCH ×2 (08:33→16:11)
[2020-08-02] MEDS: ENSURE WITH FIBER 237 ML LIQUID (CHOCOLATE) PO SCH (08:33)
[2020-08-02] MEDS: LISINOPRIL 10 MG TABLET PO SCH (08:58)
[2020-08-02 16:00] VITALS: BP 100/51
[2020-08-02 19:49] VITALS: BP 125/68
[2020-08-02] MEDS: SIMVASTATIN 20 MG TABLET PO SCH (20:09)
[2020-08-02] MEDS: TEMAZEPAM 7.5 MG CAPSULE PO PRN (21:59)
[2020-08-03] MEDS: LEVOTHYROXINE SODIUM 50 MCG TABLET PO SCH (06:06)
[2020-08-03] MEDS: DIVALPROEX 500 MG TABLET.DR PO SCH ×2 (08:39→20:08)
[2020-08-03] MEDS: ENSURE WITH FIBER 237 ML LIQUID (CHOCOLATE) PO SCH (08:39)
[2020-08-03] MEDS: NICOTINE 21 MG/24HR PATCH TD SCH (08:39)
[2020-08-03] MEDS: LISINOPRIL 10 MG TABLET PO SCH (08:40)
[2020-08-03] MEDS: DIGOXIN 125 MCG TABLET PO SCH (08:40)
[2020-08-03] MEDS: HALOPERIDOL 5 MG TABLET PO SCH ×2 (08:40→20:09)
[2020-08-03] MEDS: APIXABAN 5 MG TABLET PO SCH ×2 (09:34→17:38)
[2020-08-03 09:50] VITALS: BP 110/70
--- NOTE | 2020-08-03 13:17 | NUR ---
patient is cooperative, redirectable, but is guarded, isolative, and withdrawn to his room. patient has minimal interaction with peers and staff. patient denies SI/Hi, denies Ah/Vh. he appears irritable upon face to face assessment and providing minimal information. patient is able to ambulate independently with walker. he is adherent with medication, no adverse reaction noted.
[2020-08-03 15:28] VITALS: BP 124/59
[2020-08-03 19:50] VITALS: BP 130/65
[2020-08-03] MEDS: SIMVASTATIN 20 MG TABLET PO SCH (20:08)
[2020-08-03] MEDS: TEMAZEPAM 7.5 MG CAPSULE PO PRN (22:17)
--- NOTE | 2020-08-04 01:28 | NUR ---
RECEIVED PATIENT IN BED. GUARDED,ISOLATIVE AND WITHDRAWN. MOOD LOW WITH MINIMAL INTERACTION AND DISCLOSURE. DENIES SI/HI. HOWEVER COMPLIANT WITH MEDS AND CARE. VISUAL CHECKS MADE ON HIM.WILL CONTINUE TO MONITOR.
[2020-08-04] MEDS: LEVOTHYROXINE SODIUM 50 MCG TABLET PO SCH (06:28)
--- NOTE | 2020-08-04 06:43 | NUR ---
HE REQUESTED FOR RESTORIL AT 2215.SLEPT WELL FOR 9:15HOURS.
[2020-08-04 07:30] VITALS: BP 119/66
[2020-08-04] MEDS: NICOTINE 21 MG/24HR PATCH TD SCH (09:00)
[2020-08-04] MEDS: APIXABAN 5 MG TABLET PO SCH ×2 (09:00→16:53)
[2020-08-04] MEDS: DIVALPROEX 500 MG TABLET.DR PO SCH ×2 (09:04→20:19)
[2020-08-04] MEDS: HALOPERIDOL 5 MG TABLET PO SCH ×2 (09:04→20:20)
[2020-08-04] MEDS: DIGOXIN 125 MCG TABLET PO SCH (09:05)
[2020-08-04] MEDS: LISINOPRIL 10 MG TABLET PO SCH (09:05)
[2020-08-04] MEDS: ENSURE WITH FIBER 237 ML LIQUID (CHOCOLATE) PO SCH (09:06)
--- NOTE | 2020-08-04 11:00 | NUR ---
PATIENT SEEN AND EXAMINED BY DR FISH WITH NO NEW ORDERS AT THIS TIME
[2020-08-04 16:00] VITALS: BP 114/57
--- NOTE | 2020-08-04 17:30 | NUR ---
AMBULATORY IN THE HALLWAY WITH A SLOW STEADY GAIT COMPLIANT WITH MEDICATIONS AND CARE NO S/S OF BLEEDING ELIQUIS GIVEN ORDERED
[2020-08-04 20:09] VITALS: BP 116/64
[2020-08-04] MEDS: SIMVASTATIN 20 MG TABLET PO SCH (20:20)
[2020-08-04] MEDS: TEMAZEPAM 7.5 MG CAPSULE PO PRN (21:52)
--- NOTE | 2020-08-05 05:36 | NUR ---
Patient compliant with medications, pleasant and calm. Slept 8.30 hours last night. Continuing to monitor for safety and any behavior escalation. No acute distress at this time.
[2020-08-05] MEDS: LEVOTHYROXINE SODIUM 50 MCG TABLET PO SCH (06:06)
[2020-08-05 07:30] VITALS: BP 110/62
[2020-08-05] MEDS: DIGOXIN 125 MCG TABLET PO SCH (08:17)
[2020-08-05] MEDS: LISINOPRIL 10 MG TABLET PO SCH (08:17)
[2020-08-05] MEDS: HALOPERIDOL 5 MG TABLET PO SCH (08:18)
[2020-08-05] MEDS: DIVALPROEX 500 MG TABLET.DR PO SCH (08:18)
[2020-08-05] MEDS: NICOTINE 21 MG/24HR PATCH TD SCH (08:18)
[2020-08-05] MEDS: ENSURE WITH FIBER 237 ML LIQUID (CHOCOLATE) PO SCH (08:19)
[2020-08-05] MEDS: APIXABAN 5 MG TABLET PO SCH (08:24)
--- NOTE | 2020-08-05 08:59 | NUR ---
patient is resting quietly and comfortably in his assigned bed. patient is guarded, withdrawn, and isolative. he is cooperative in assessment but provides minimal information. patient denies SI/HI, denies AH/VH. patient is adherent with prescribed medication, no adverse reaction noted. patient uses front wheel walker for ambulation but is able to ambulate independently. patient is encouraged to participate in the unit groups and therapeutic milieu.
--- NOTE | 2020-08-05 09:49 | NUR ---
TRACE Discharge Note: Patient will be discharged to [facility], [place] [place] [address] ([phone]) via Ambulance transportation at 3PM today. Exam Proctor spoke with Lucas, Fish Egg Packer at [facility] ([phone]) who confirmed that patient will be accepted at their facility today. Patient does not have any family or next of kin contacts at this time. Patient is alert and oriented x3. Patient is not able to plan for self-care at this time but is willing to accept care provided for him at the facility. Patient denies suicidal or homicidal ideation. Patient is aware and agreeable with discharge plans. Patient presents with appropriate mood and congruent affect. Patient will follow-up with Psychiatrist Dr. Starks and Psychologist Counseling Dr. Mosley at [facility]. Addendum: 08/05/20 at 1204 by GIA VELEZ TRACE just received a notice from Lucas direct marketing coordinator at [facility] ([phone]) that they are unable to accept the patient today due having COVID positive cases and not more bed availability at this time. They arranged for patient to admit to their sister facility, [address] [address] ([phone]). TRACE will coordinate new discharge plan.
--- NOTE | 2020-08-05 12:04 | NUR ---
SW UPDATED Discharge Note: Patient will be discharged to [facility] [address] [place] [id number] ([phone]) via Ambulance transportation at 3PM today. Slot Host spoke with Mikaela, Bowling Ball Marker at [facility] ([phone]) who confirmed that patient will be accepted at their facility today. Patient does not have any family or next of kin contacts at this time. Patient is alert and oriented x3. Patient is not able to plan for self-care at this time but is willing to accept care provided for him at the facility. Patient denies suicidal or homicidal ideation. Patient is aware and agreeable with discharge plans. Patient presents with appropriate mood and congruent affect. Patient will follow-up with Psychiatrist Dr. Starks and Occupational Therapy Assistant Dr. Mosley at [facility].
[2020-08-05 15:26] VITALS: BP 119/61
--- NOTE | 2020-08-05 15:42 | NUR ---
DISCHARGE NOTE: patient discharged off the unit in stable condition accompanied by RN and non-emergency ambulance transportation. patient denies suicidal and homicidal ideation. patient's belongings inventoried and returned to patient. patient provided with education about discharge instructions, follow up instructions with psychiatrist and surface ship usw supervisor, and instructions about medications. patient is able to verbalize understanding. patient escorted off the unit with no adverse event.
== END 2020-08-05 15:25 | DRG 885 ==
LOC: GPSOV3 17:18 → GPS 21:41
PROVIDERS: ADMIT Psychiatry & Neurology Psychiatry; ATTEND Nurse Practitioner Acute Care
DX: F20.0 Paranoid schizophrenia (principal); I48.91 Unspecified atrial fibrillation; Z79.01 Long term (current) use of anticoagulants; E03.9 Hypothyroidism, unspecified; E78.5 Hyperlipidemia, unspecified; I10 Essential (primary) hypertension; Z71.6 Tobacco abuse counseling; F41.9 Anxiety disorder, unspecified; F39 Unspecified mood [affective] disorder; F17.210 Nicotine dependence, cigarettes, uncomplicated
CPT/HCPCS: 36415; 84443; J1200; J1630; J1631; J2060

== ENCOUNTER 2022-09-11 18:25 | Inpatient (IN) | payer MEDICARE, OTHER ==
[~2022-09-11] VITALS: Ht 177.8 cm; Wt 79.8 kg
[~2022-09-11 18:25] MED LIST changes: -CLON0.5T4 PO; -HALO10TA13 PO; +LISI10TA29 PO; -LISI10TA5 PO; -VALP250C3 PO
--- NOTE | 2022-09-11 18:40 | NUR ---
Attempted to do EKG, pt refused and stated "I don't need this shit". ERMD notified.
[2022-09-11 18:46] LABS: HEMATOCRIT 41.4 % (36.7-47.1); MEAN CORPUSCULAR HEMOGLOBIN 31.3 uug (23.8-33.4); MEAN CORPUSCULAR VOLUME 93.9 fL (73.0-96.2); PLATELET COUNT (AUTO) 357 K/uL (152-348)
[2022-09-11] MEDS ORDERED: MULT-594 PO (18:47)
[2022-09-11] MEDS ORDERED: BISA10SU61 RC (18:47)
[2022-09-11] MEDS ORDERED: IBUP-1955 PO (18:47)
[2022-09-11] MEDS ORDERED: RISP1TAB7 PO (18:47)
[2022-09-11] MEDS ORDERED: ATOR10TA PO (18:47)
[2022-09-11] MEDS ORDERED: NA P133E RC (18:47)
[2022-09-11] MEDS ORDERED: NIFE-35 PO (18:47)
[2022-09-11] MEDS ORDERED: DIGO125T PO (18:47)
[2022-09-11] MEDS ORDERED: CLOP75TA15 PO (18:47)
--- NOTE | 2022-09-11 18:51 | NUR ---
Pt is agitated, walking around ER and screaming, Code Chappell called.
[2022-09-11 18:58] LABS: ALANINE AMINOTRANSFERASE 25 U/L (16-63); ALKALINE PHOSPHATASE 63 U/L (50-136); ASPARTATE AMINOTRANSFERASE 8 U/L (15-37); BILIRUBIN,DIRECT 0.2 mg/dL (0.0-0.2); BILIRUBIN,TOTAL 0.4 mg/dL (0.2-1.0); CARBON DIOXIDE 27 mmol/L (21-32); CHLORIDE 103 mmol/L (98-107); CREATININE 0.9 mg/dL (0.6-1.3); GLUCOSE 116 mg/dL (74-106); POTASSIUM 4.1 mmol/L (3.5-5.1); TOTAL PROTEIN, SERUM 7.8 g/dL (6.4-8.2); UREA NITROGEN, BLOOD 22 mg/dL (7-18)
[2022-09-11] MEDS ORDERED: KETAMINE HCL 500 MG/10 ML INJ IM ONE (19:00)
[2022-09-11] MEDS ORDERED: LORAZEPAM 2 MG/1 ML VIAL IM ONE ×2 (19:00→21:45)
[2022-09-11] MEDS ORDERED: KETAMINE HCL 500 MG/10 ML INJ ONE (19:03)
[2022-09-11] MEDS ORDERED: LORAZEPAM 2 MG/1 ML VIAL ONE ×2 (19:04→21:40)
[2022-09-11] MEDS ORDERED: ONDANSETRON 4 MG/2 ML VIAL ONE (19:06)
[2022-09-11 19:07] LABS: ACETAMINOPHEN < 2.0 ug/mL (10-30); ETHANOL < 3 MG/DL (0-0)
[2022-09-11] MEDS ORDERED: ONDANSETRON 4 MG/2 ML VIAL IM ONE (19:15)
--- NOTE | 2022-09-11 20:05 | NUR ---
CARE ASSUMED AT 1930, PATIENT ASSISTED BACK TO BED, INFORMED OF PLAN OF CARE AND WAS MEDICATED PER ORDER. BEDSIDE EKG DONE FOR MD REVIEW, PATIENT PLACED ON MONITOR, SIDE RAILS UP WILL CONTINUE TO MONITOR. NO S/S OF ANY DISTRESS NOTED.PATIENT AWARE OF NEED FOR URINE SPECIMEN.
--- NOTE | 2022-09-11 20:30 | NUR ---
PATIENT GIVEN SANDWHICH AND JUICE AT THIS TIME.
--- NOTE | 2022-09-11 21:21 | NUR ---
PATIENT HAS BEEN SWABED AND SENT TO LAB.
--- NOTE | 2022-09-11 21:33 | NUR ---
Called Shayla Garcia [facility] for psych evaluation.
[2022-09-11 21:55] LABS: *BILIRUBIN,URIN NEGATIVE (NEGATIVE); *CLARITY,URINE CLEAR (CLEAR); *COLOR,URINE YELLOW (YELLOW); *KETONES,URINE NEGATIVE (NEGATIVE); *UROBILINOGEN,URINE 0.2 E.U./dl (NORMAL); LEUKOCYTE ESTERASE ,URINE TRACE (NEGATIVE); NITRITE, URINE POSITIVE (NEGATIVE); UGLUCOSE NEGATIVE (NEGATIVE)
[2022-09-11 22:07] LABS: *AMPHETAMINE, URINE NEGATIVE (NEGATIVE); *CANNABINOID, URINE NEGATIVE (NEGATIVE); *COCCAINE, URINE NEGATIVE (NEGATIVE); *OPIATE, URINE NEGATIVE (NEGATIVE); *PHENCYCLIDINE SCREEN,URINE NEGATIVE (NEGATIVE)
[2022-09-11 22:10] LABS: *BLOOD, URINE TRACE (NEGATIVE)
--- NOTE | 2022-09-11 22:28 | NUR ---
RESTING IN BED AWARE WILL BE ADMITTED TO THE HOSPITAL AWAITING EVAL. REQUESTED AND GIVEN SHEILA.
[2022-09-11 22:40] LABS: BACTERIA,URINE MANY /HPF (NONE SEEN); RBC,URINE 0-3 /HPF (0-3); SQUAMOUS EPITHELIAL CELL,UR FEW /HPF (NONE SEEN)
--- NOTE | 2022-09-11 23:43 | NUR ---
patient resting in bed, difficult to arouse, psych eval at bedside. No s/s of any distress noted. 80-18-99%, side rails remain up will continue to monitor.
[2022-09-11] MEDS ORDERED: LIDOCAINE HCL 1% 20 ML VIAL IJ ONE (23:45)
[2022-09-11] MEDS ORDERED: CEFTRIAXONE 1 G VIAL IM ONE (23:45)
--- NOTE | 2022-09-12 01:09 | NUR ---
patient sleeping no s/s of any distress noted at this time. Awaiting to be admitted to room. on room air.
--- NOTE | 2022-09-12 01:21 | NUR ---
123/70-71-18-98% at this time.
[2022-09-12] MEDS ORDERED: MAG HYDROX/AL HYDROX/SIMETH 30 ML LIQUID UDC PO PRN (01:45)
[2022-09-12] MEDS ORDERED: MAGNESIUM HYDROXIDE 30 ML LIQUID UDC PO PRN (01:45)
[2022-09-12] MEDS ORDERED: CLONAZEPAM 0.5 MG TABLET PO PRN (01:45)
[2022-09-12] MEDS ORDERED: LIDOCAINE HCL 1% 20 ML VIAL ONE (01:58)
[2022-09-12] MEDS ORDERED: CEFTRIAXONE 1 G VIAL ONE (01:58)
--- NOTE | 2022-09-12 02:06 | NUR ---
report call to accepting nurse Caleb, patient remains stable for transport to unit.
[2022-09-12 02:41] VITALS: BP 131/71
--- NOTE | 2022-09-12 03:25 | NUR ---
GPS: Admitted to unit around 0230 a 71 yr.old male under the care of /LACHELLE Prajapati who was medically cleared in the E.R. Pt.is on a 72 hour hold for DTO/GD. Pt.came from [facility] were he was having increased outbursts,aggressive behavior and has been refusing meds.,per hold. Pt.was asleep when transported to the unit but arousable when touched. Refused to sign paperwork/answer questions and just wants to sleep. Pt's rights handbook and advisement placed on his bedside table. Safe environment provided. Personal belongings inventoried. Needs attended. Will continue to monitor behavior.
--- NOTE | 2022-09-12 05:26 | NUR ---
GPS: Pt.woke up earlier and was assisted to the bathroom to urinate. Gait is slow and slightly unsteady. Easily irritable and was argumentative when unit rules were being explained to him. No striking out behavior noted. Needs attended. Safety emphasized. Will continue to re-direct prn.
[2022-09-12 07:38] VITALS: BP 122/78
[2022-09-12] MEDS ORDERED: LORAZEPAM 2 MG/1 ML VIAL IM STA (08:27)
[2022-09-12 09:10] VITALS: BP 130/69
--- NOTE | 2022-09-12 09:13 | NUR ---
Patient became aggressive, verbally abusive, yelling, combative, cursing, threatening. Psychiatrist prescribed Ativan 2 mg IM. Security was called and four people were necessary to administer medication, but no force needed. Emotional support provided. Fall and safety precautions implemented.
[2022-09-12] MEDS: NICOTINE 21 MG/24HR PATCH TD SCH (09:26)
[2022-09-12] MEDS: risperiDONE 1 MG TABLET PO SCH ×3 (09:43→16:34)
--- NOTE | 2022-09-12 15:20 | NUR ---
Received patient awake pacing in the hallway. Patient is verbally abusive, yelling at staff and having outbursts, argumentative, poor impulse control, anxious, fixated on having cigarettes. Patient is confused at times "What kind of facility doesn't let people to smoke?" "I don't believe this is a hospital. It doesn't look like one". Reassurance given. Fall and safety precautions implemented.
[2022-09-12] MEDS ORDERED: FLEET ENEMA 133 ML BOTTLE RC PRN (17:00)
[2022-09-12] MEDS ORDERED: BISACODYL 10 MG SUPP.RECT RC PRN (17:00)
[2022-09-12] MEDS ORDERED: DOCUSATE SODIUM 250 MG CAPSULE PO PRN (17:00)
[2022-09-12] MEDS: ATORVASTATIN 10 MG TABLET PO SCH (20:47)
[2022-09-13] MEDS: LORAZEPAM 1 MG TABLET PO PRN (06:55)
[2022-09-13] MEDS: LEVOTHYROXINE SODIUM 50 MCG TABLET PO SCH (06:55)
[2022-09-13 07:59] VITALS: BP 135/87
[2022-09-13 08:12] LABS: MEAN CORPUSCULAR HEMOGLOBIN 31.4 uug (23.8-33.4); MEAN CORPUSCULAR VOLUME 94.9 fL (73.0-96.2); PLATELET COUNT (AUTO) 357 K/uL (152-348)
[2022-09-13 08:27] LABS: BILIRUBIN,TOTAL 0.4 mg/dL (0.2-1.0); CREATININE 0.9 mg/dL (0.6-1.3); PHOSPHOROUS 3.1 mg/dL (2.5-4.9); POTASSIUM 4.2 mmol/L (3.5-5.1); TOTAL PROTEIN, SERUM 8.2 g/dL (6.4-8.2)
[2022-09-13 08:35] LABS: THYROID STIMULATING HORMONE 1.171 mIU/mL (0.358-3.740)
[2022-09-13 08:39] LABS: DIGOXIN < 0.2 ng/mL (0.9-2.0)
[2022-09-13] MEDS ORDERED: Medication Not On Formulary EA (Multivitamins (Multivitamin) 1 TAB) PO SCH (09:00)
[2022-09-13] MEDS ORDERED: LEVOTHYROXINE PO SCH (09:00)
[2022-09-13] MEDS: CLOPIDOGREL 75 MG TABLET PO SCH (09:13)
[2022-09-13] MEDS: LISINOPRIL 20 MG TABLET PO SCH (09:13)
[2022-09-13] MEDS: DIGOXIN 125 MCG TABLET PO SCH (09:13)
[2022-09-13] MEDS: MULTIVITAMINS,THERAPEUTIC TABLET PO SCH (09:14)
[2022-09-13] MEDS: NICOTINE 21 MG/24HR PATCH TD SCH (09:14)
--- NOTE | 2022-09-13 09:14 | NUR ---
unable to scan patient's armband
[2022-09-13] MEDS: risperiDONE 1 MG TABLET PO SCH ×3 (09:24→16:30)
[2022-09-13 15:33] VITALS: BP 115/69
[2022-09-13 20:14] VITALS: BP 155/84
[2022-09-13] MEDS: ATORVASTATIN 10 MG TABLET PO SCH (20:49)
--- NOTE | 2022-09-14 04:40 | NUR ---
Patient remained withdrawn and isolated in his bed the entire shift. Compliant with medications and verbalizing appropriately. Will continue to monitor.
[2022-09-14] MEDS: LEVOTHYROXINE SODIUM 50 MCG TABLET PO SCH (06:17)
[2022-09-14] MEDS: NICOTINE 21 MG/24HR PATCH TD SCH (08:49)
[2022-09-14] MEDS: LISINOPRIL 20 MG TABLET PO SCH (08:51)
[2022-09-14] MEDS: risperiDONE 1 MG TABLET PO SCH (08:51)
[2022-09-14] MEDS: CLOPIDOGREL 75 MG TABLET PO SCH (08:51)
[2022-09-14] MEDS: MULTIVITAMINS,THERAPEUTIC TABLET PO SCH (08:51)
[2022-09-14] MEDS: DIGOXIN 125 MCG TABLET PO SCH (08:53)
[2022-09-14 08:56] VITALS: BP 117/75
[2022-09-14] MEDS: risperiDONE 2 MG TABLET PO SCH ×2 (12:29→17:54)
--- NOTE | 2022-09-14 12:31 | NUR ---
TRACE Initial Discharge Note: Pt currently resides at [place] [phone] ([phone]). TRACE will continue to locate contact numbers to call pt's family regarding his return to [facility] upon discharge. TRACE will continue to work with pt, family and MD to ensure a safe and proper discharge plan.
--- NOTE | 2022-09-14 12:32 | NUR ---
TRACE Family Contact: No family contact information at this time. SW will continue to locate.
--- NOTE | 2022-09-14 12:40 | NUR ---
Firearms Report: Sectional Belt Mold Assembler completed and submitted a DOJ firearms report for 5150 a danger to others and grave disability certifications. A copy of report has been placed in patient chart.
[2022-09-14] MEDS ORDERED: risperiDONE 1 MG TABLET PO SCH (13:00)
[2022-09-14] MEDS: LORAZEPAM 1 MG TABLET PO PRN ×2 (14:18→15:34)
[2022-09-14 16:04] VITALS: BP 138/75
[2022-09-14 19:36] VITALS: BP 110/59
[2022-09-14] MEDS: ATORVASTATIN 10 MG TABLET PO SCH (20:47)
--- NOTE | 2022-09-14 21:35 | NUR ---
Received patient awake lying in his bed in his room. patient is quiet and isolative.encouraged to ventilate feelings. Patient is confused at times. compliant with medications. Fall and safety precautions implemented. continue plan of care.
[2022-09-15] MEDS: LEVOTHYROXINE SODIUM 50 MCG TABLET PO SCH (06:15)
--- NOTE | 2022-09-15 06:28 | NUR ---
GPS: Remain calm and cooperative with staff. no agitation noted. slept 9.45 hrs through the night.
[2022-09-15 07:40] VITALS: BP 124/56
[2022-09-15] MEDS: MULTIVITAMINS,THERAPEUTIC TABLET PO SCH (08:37)
[2022-09-15] MEDS: DIGOXIN 125 MCG TABLET PO SCH (08:37)
[2022-09-15] MEDS: NICOTINE 21 MG/24HR PATCH TD SCH (08:37)
[2022-09-15] MEDS: risperiDONE 2 MG TABLET PO SCH ×3 (08:37→16:52)
[2022-09-15] MEDS: LISINOPRIL 20 MG TABLET PO SCH (08:38)
[2022-09-15] MEDS: CLOPIDOGREL 75 MG TABLET PO SCH (08:38)
[2022-09-15] MEDS: NITROFURANTOIN/NITROFURAN MAC 100 MG CAPSULE PO SCH ×2 (10:58→20:21)
[2022-09-15] MEDS: BENZTROPINE MESYLATE 0.5 MG TABLET PO SCH ×2 (12:50→16:52)
--- NOTE | 2022-09-15 15:46 | NUR ---
Received patient sleeping in his room. A/O X 3 to person, place. Patient is isolative, confinding, withdrawn, depressed, cooperative, low energy, not engaged in group activities, compliant with medications. Requires minimal assistance with ADL. Reassurance given. Fall and safety precautions implemented.
[2022-09-15 16:36] VITALS: BP 117/56
[2022-09-15 19:55] VITALS: BP 101/51
[2022-09-15] MEDS: ATORVASTATIN 10 MG TABLET PO SCH (20:21)
[2022-09-16] MEDS: LEVOTHYROXINE SODIUM 50 MCG TABLET PO SCH (06:01)
--- NOTE | 2022-09-16 06:11 | NUR ---
GPS: Remain calm and cooperative with staff. no agitation noted. slept 8.30 hrs through the night.
[2022-09-16 07:47] VITALS: BP 129/85
[2022-09-16] MEDS: DIGOXIN 125 MCG TABLET PO SCH (08:44)
[2022-09-16] MEDS: LISINOPRIL 20 MG TABLET PO SCH (08:45)
[2022-09-16] MEDS: MULTIVITAMINS,THERAPEUTIC TABLET PO SCH (08:45)
[2022-09-16] MEDS: NITROFURANTOIN/NITROFURAN MAC 100 MG CAPSULE PO SCH ×2 (08:45→20:15)
[2022-09-16] MEDS: risperiDONE 2 MG TABLET PO SCH ×3 (08:45→16:58)
[2022-09-16] MEDS: BENZTROPINE MESYLATE 0.5 MG TABLET PO SCH ×3 (08:45→16:58)
[2022-09-16] MEDS: CLOPIDOGREL 75 MG TABLET PO SCH (08:46)
[2022-09-16] MEDS: NICOTINE 21 MG/24HR PATCH TD SCH (08:46)
--- NOTE | 2022-09-16 15:27 | NUR ---
Patient is withdrawn, depressed, isolative, compliant with medications, cooperative. Patient is not engage in any activities or conversations. Patient is encourage to vent feelings and emotions. Fall and safety precautions implemented.
[2022-09-16 16:08] VITALS: BP 115/69
[2022-09-16] MEDS: ATORVASTATIN 10 MG TABLET PO SCH (20:15)
[2022-09-16 20:25] VITALS: BP 96/54
--- NOTE | 2022-09-16 21:04 | NUR ---
GPS: Remains compliant with his bedtime meds. No aggressive behavior noted. Encouraged to get out of bed and attend daily activities during the day. Needs attended. Safety emphasized.
[2022-09-16] MEDS: TEMAZEPAM 7.5 MG CAPSULE PO PRN (21:35)
[2022-09-17] MEDS: LEVOTHYROXINE SODIUM 50 MCG TABLET PO SCH (06:49)
[2022-09-17 07:30] VITALS: BP 22/87
[2022-09-17] MEDS: MULTIVITAMINS,THERAPEUTIC TABLET PO SCH (08:23)
[2022-09-17] MEDS: DIGOXIN 125 MCG TABLET PO SCH (08:23)
[2022-09-17] MEDS: NITROFURANTOIN/NITROFURAN MAC 100 MG CAPSULE PO SCH ×2 (08:23→20:11)
[2022-09-17] MEDS: NICOTINE 21 MG/24HR PATCH TD SCH (08:23)
[2022-09-17] MEDS: risperiDONE 2 MG TABLET PO SCH ×2 (08:24→20:11)
[2022-09-17] MEDS: CLOPIDOGREL 75 MG TABLET PO SCH (08:24)
[2022-09-17] MEDS: LISINOPRIL 20 MG TABLET PO SCH (08:24)
[2022-09-17] MEDS: BENZTROPINE MESYLATE 0.5 MG TABLET PO SCH ×3 (08:24→16:56)
[2022-09-17] MEDS: GLUCERNA SHAKE 237 ML CAN PO SCH (13:16)
--- NOTE | 2022-09-17 14:10 | NUR ---
Patient had court hearing today, scratcher gave 14 Day hold probable cause for GD only.
--- NOTE | 2022-09-17 15:10 | NUR ---
Received patient sleeping in his room. Patient is A/O X 2 to person, place. Patient is depressed, confinding in his room, isolative, complaint with medications, cooperative with nursing care. Requires minimal assistance with ADL. Emotional support provided. Fall and safety precautions implemented.
[2022-09-17 16:00] VITALS: BP 114/61
[2022-09-17] MEDS: ATORVASTATIN 10 MG TABLET PO SCH (20:11)
[2022-09-17 20:19] VITALS: BP 113/55
--- NOTE | 2022-09-17 20:53 | NUR ---
GPS: Remains med.compliant. No increased agitation noted. Re-assured prn. Denies SI/HI. Safety emphasized. Will continue to monitor.
[2022-09-17] MEDS ORDERED: risperiDONE 0.5 MG TABLET PO SCH (21:00)
[2022-09-17] MEDS: TEMAZEPAM 7.5 MG CAPSULE PO PRN (23:20)
[2022-09-18] MEDS: LEVOTHYROXINE SODIUM 50 MCG TABLET PO SCH (06:40)
[2022-09-18 07:30] VITALS: BP 112/74
[2022-09-18] MEDS: NICOTINE 21 MG/24HR PATCH TD SCH (09:15)
[2022-09-18] MEDS: NITROFURANTOIN/NITROFURAN MAC 100 MG CAPSULE PO SCH (09:16)
[2022-09-18] MEDS: risperiDONE 2 MG TABLET PO SCH ×2 (09:16→20:10)
[2022-09-18] MEDS: DIGOXIN 125 MCG TABLET PO SCH (09:21)
[2022-09-18] MEDS: LISINOPRIL 20 MG TABLET PO SCH (09:21)
[2022-09-18] MEDS: BENZTROPINE MESYLATE 0.5 MG TABLET PO SCH ×3 (09:22→17:42)
[2022-09-18] MEDS: MULTIVITAMINS,THERAPEUTIC TABLET PO SCH (09:22)
[2022-09-18] MEDS: CLOPIDOGREL 75 MG TABLET PO SCH (09:22)
[2022-09-18] MEDS: GLUCERNA SHAKE 237 ML CAN PO SCH (09:23)
[2022-09-18 16:00] VITALS: BP 108/60
--- NOTE | 2022-09-18 16:04 | NUR ---
Received Patient remained withdrawn and isolated in his bed the entire shift. Compliant with medications and verbalizing appropriately. patient with poor insight and judgement Will continue to monitor.
[2022-09-18 19:49] VITALS: BP 104/55
[2022-09-18] MEDS: ATORVASTATIN 10 MG TABLET PO SCH (20:10)
--- NOTE | 2022-09-18 20:43 | NUR ---
GPS: Med.compliant. No increased agitation noted. Isolative and withdrawn. Encouraged to attend daily activities. Safety emphasized. Will continue to monitor.
[2022-09-19] MEDS: LEVOTHYROXINE SODIUM 50 MCG TABLET PO SCH (06:19)
[2022-09-19 07:53] VITALS: BP 110/65
[2022-09-19] MEDS: NICOTINE 21 MG/24HR PATCH TD SCH (08:59)
[2022-09-19] MEDS: CLOPIDOGREL 75 MG TABLET PO SCH (08:59)
[2022-09-19] MEDS: risperiDONE 2 MG TABLET PO SCH ×2 (08:59→20:40)
[2022-09-19] MEDS: MULTIVITAMINS,THERAPEUTIC TABLET PO SCH (08:59)
[2022-09-19] MEDS: LISINOPRIL 20 MG TABLET PO SCH (09:00)
[2022-09-19] MEDS: BENZTROPINE MESYLATE 0.5 MG TABLET PO SCH ×3 (09:00→16:10)
[2022-09-19] MEDS: DIGOXIN 125 MCG TABLET PO SCH (09:00)
[2022-09-19] MEDS: GLUCERNA SHAKE 237 ML CAN PO SCH (09:01)
--- NOTE | 2022-09-19 15:48 | NUR ---
GPS: Nursing Notes: Destructive Behavior To Others: Patient is awake and responding to her name, no interactions with peers, isolative in his room, compliant with his medications, no aggressive behavior noted, refusing to participate in therapeutic groups, gets irritable when redirected, continue to monitor for safety, continue with treatment plan.
[2022-09-19 16:24] VITALS: BP 113/68
[2022-09-19 20:04] VITALS: BP 127/76
[2022-09-19] MEDS: ATORVASTATIN 10 MG TABLET PO SCH (20:40)
[2022-09-19] MEDS: LORAZEPAM 1 MG TABLET PO PRN (20:47)
[2022-09-19] MEDS: TEMAZEPAM 7.5 MG CAPSULE PO PRN (23:39)
[2022-09-20] MEDS: LORAZEPAM 1 MG TABLET PO PRN (06:02)
[2022-09-20] MEDS: LEVOTHYROXINE SODIUM 50 MCG TABLET PO SCH (06:02)
[2022-09-20] MEDS: ACETAMINOPHEN 325 MG TABLET PO PRN (06:02)
[2022-09-20 07:58] VITALS: BP 144/95
[2022-09-20] MEDS: CLOPIDOGREL 75 MG TABLET PO SCH (08:30)
[2022-09-20] MEDS: DIGOXIN 125 MCG TABLET PO SCH (08:31)
[2022-09-20] MEDS: risperiDONE 2 MG TABLET PO SCH ×2 (08:31→21:00)
[2022-09-20] MEDS: BENZTROPINE MESYLATE 0.5 MG TABLET PO SCH ×3 (08:32→16:38)
[2022-09-20] MEDS: LISINOPRIL 20 MG TABLET PO SCH (08:32)
[2022-09-20] MEDS: GLUCERNA SHAKE 237 ML CAN PO SCH (08:33)
[2022-09-20] MEDS: NICOTINE 21 MG/24HR PATCH TD SCH (08:33)
[2022-09-20] MEDS: MULTIVITAMINS,THERAPEUTIC TABLET PO SCH (08:33)
--- NOTE | 2022-09-20 13:23 | NUR ---
GPS: Nursing Notes: Destructive Behavior To Others: Patient is awake and responding to his name, poor anger management, poor impulse control, threatening staff, responding to internal stimuli by mumbling to unseen others, stated "The police officers are talking to me all the time...", "No medication can fix that... I am not going to take anymore pills..", explained the pros and cons of medications, but continue to be labile, loud and pressured speech, argumentative with staff, impaired judgment, poor insight, unable to formulate a viable plan for self care, continue to monitor for safety, continue with treatment plan.
[2022-09-20 16:47] VITALS: BP 140/82
[2022-09-20 20:01] VITALS: BP 117/60
[2022-09-20] MEDS: TEMAZEPAM 7.5 MG CAPSULE PO PRN (20:58)
[2022-09-20] MEDS: ATORVASTATIN 10 MG TABLET PO SCH (21:00)
--- NOTE | 2022-09-20 21:04 | NUR ---
Patient is easily irritable and confused. Patient states "I've been here for 30 days, you don't know what you're talking about!" Pt refused to take all scheduled medications besides Temazepam prn. Pt stated "I'm only here to take sleeping pills!" "Psychiatrists are not doctors!" Etc. Will continue to monitor.
[2022-09-21] MEDS: LEVOTHYROXINE SODIUM 50 MCG TABLET PO SCH (06:17)
--- NOTE | 2022-09-21 06:17 | NUR ---
Patient refuses to take any other medication besides his Temazepam 7.5 mg for insomnia.
[2022-09-21 07:44] VITALS: BP 109/64
[2022-09-21] MEDS ORDERED: ZIPRASIDONE MESYLATE 20 MG VIAL IM ONE (08:30)
--- NOTE | 2022-09-21 08:31 | NUR ---
GPS: Nursing Notes: Chemical Restraint: Patient is awake and responding to his name, cursing and threatening the psychiatrist - Dr. Lugo, verbal abusive toward staff and psychiatrist, refusing his medications, shouting profanities toward the psychiatrist, violent outburst without provocation, Dr. Lugo came out of the room and ordered: Geodon 10mg IM STAT for severe agitation, R=18, loud and pressured speech, setting limits, but unable to be redirected, medication IM given at this time, continue to monitor for safety, continue with treatment plan.
[2022-09-21] MEDS: DIGOXIN 125 MCG TABLET PO SCH (08:32)
[2022-09-21] MEDS: risperiDONE 2 MG TABLET PO SCH ×2 (08:32→21:00)
[2022-09-21] MEDS: BENZTROPINE MESYLATE 0.5 MG TABLET PO SCH ×3 (08:32→16:52)
[2022-09-21] MEDS: MULTIVITAMINS,THERAPEUTIC TABLET PO SCH (08:32)
[2022-09-21] MEDS: GLUCERNA SHAKE 237 ML CAN PO SCH (08:32)
[2022-09-21] MEDS: LISINOPRIL 20 MG TABLET PO SCH (08:32)
[2022-09-21] MEDS: CLOPIDOGREL 75 MG TABLET PO SCH (08:32)
[2022-09-21] MEDS: NICOTINE 21 MG/24HR PATCH TD SCH (09:00)
--- NOTE | 2022-09-21 09:01 | NUR ---
GPS: Nursing Notes: Reassessment of Chemical Restraint: Patient is awake and responding to his name, isolative and withdrawn in his room, continue to refuse his PO medications, poor anger management, resistant with nursing care, medication IM was helpful, patient is calmed and quiet, R=18, continue to monitor for safety, continue with treatment plan.
[2022-09-21 16:28] VITALS: BP 114/58
--- NOTE | 2022-09-21 16:48 | NUR ---
GPS: Nursing Notes: Destructive Behavior To Others: Patient is awake and responding to his name, labile, unpredictable behavior, loud and pressured speech, resistant with nursing care, gets easily irritable when redirected, poor anger management, refusing his PO medications stated "There are no pills that will work for me..", "The police officers are always harassing me...", isolative and withdrawn in his room, unable to formulate a viable plan for self care, verbal abusive toward the psychiatrist, continue to monitor for safety, continue with treatment plan.
[2022-09-21 19:58] VITALS: BP 114/54
[2022-09-21] MEDS: ATORVASTATIN 10 MG TABLET PO SCH (21:00)
[2022-09-21] MEDS: TEMAZEPAM 7.5 MG CAPSULE PO PRN (21:24)
--- NOTE | 2022-09-21 21:25 | NUR ---
Patient is isolated, withdrawn and still refusing to take his scheduled medications. Pt still only willing to take Temazepam. Will continue to monitor for psychosis.
[2022-09-22] MEDS: LEVOTHYROXINE SODIUM 50 MCG TABLET PO SCH (06:21)
[2022-09-22 07:30] VITALS: BP 123/65
[2022-09-22] MEDS: NICOTINE 21 MG/24HR PATCH TD SCH (08:34)
[2022-09-22] MEDS: BENZTROPINE MESYLATE 0.5 MG TABLET PO SCH ×3 (08:35→16:49)
[2022-09-22] MEDS: CLOPIDOGREL 75 MG TABLET PO SCH (08:35)
[2022-09-22] MEDS: risperiDONE 2 MG TABLET PO SCH ×2 (08:35→20:31)
[2022-09-22] MEDS: MULTIVITAMINS,THERAPEUTIC TABLET PO SCH (08:35)
[2022-09-22] MEDS: LISINOPRIL 20 MG TABLET PO SCH (08:36)
[2022-09-22] MEDS: GLUCERNA SHAKE 237 ML CAN PO SCH (08:36)
[2022-09-22] MEDS: DIGOXIN 125 MCG TABLET PO SCH (08:38)
[2022-09-22 16:00] VITALS: BP 101/47
--- NOTE | 2022-09-22 16:18 | NUR ---
GPS: Nursing Notes: Destructive Behavior To Others: Patient is awake and responding to his name, refusing to participate in therapeutic groups, poor anger management, resistant with nursing care, poor grooming, unable to formulate a viable for self care, continue to monitor for safety, continue with treatment plan.
[2022-09-22 19:51] VITALS: BP 96/56
[2022-09-22] MEDS: ATORVASTATIN 10 MG TABLET PO SCH (20:31)
[2022-09-23] MEDS: ACETAMINOPHEN 325 MG TABLET PO PRN (01:13)
--- NOTE | 2022-09-23 05:57 | NUR ---
Pt slept 7.00 hours. No distress noted. Able to transfer self to wheelchair. Safety maintained throughout the shift. Will endorse to day shift.
[2022-09-23] MEDS: LEVOTHYROXINE SODIUM 50 MCG TABLET PO SCH (06:09)
[2022-09-23 07:30] VITALS: BP 124/77
[2022-09-23] MEDS: DIGOXIN 125 MCG TABLET PO SCH (08:52)
[2022-09-23] MEDS: LISINOPRIL 20 MG TABLET PO SCH (08:53)
[2022-09-23] MEDS: BENZTROPINE MESYLATE 0.5 MG TABLET PO SCH ×3 (08:53→17:21)
[2022-09-23] MEDS: GLUCERNA SHAKE 237 ML CAN PO SCH (08:53)
[2022-09-23] MEDS: CLOPIDOGREL 75 MG TABLET PO SCH (08:53)
[2022-09-23] MEDS: NICOTINE 21 MG/24HR PATCH TD SCH (08:54)
[2022-09-23] MEDS: risperiDONE 2 MG TABLET PO SCH ×2 (08:54→20:08)
[2022-09-23] MEDS: MULTIVITAMINS,THERAPEUTIC TABLET PO SCH (08:54)
[2022-09-23 16:00] VITALS: BP 109/64
--- NOTE | 2022-09-23 17:56 | NUR ---
GPS: Nursing Notes: Destructive Behavior To Others: Patient is awake and responding to his name, poor anger management, resistant with nursing care, poor grooming, unable to formulate a viable for self care, continue to monitor for safety, continue with treatment plan.
[2022-09-23 19:56] VITALS: BP 116/69
[2022-09-23] MEDS: ATORVASTATIN 10 MG TABLET PO SCH (20:08)
[2022-09-24] MEDS: TEMAZEPAM 7.5 MG CAPSULE PO PRN (02:00)
[2022-09-24] MEDS: LEVOTHYROXINE SODIUM 50 MCG TABLET PO SCH (06:37)
[2022-09-24 07:30] VITALS: BP 117/71
[2022-09-24] MEDS: NICOTINE 21 MG/24HR PATCH TD SCH (08:45)
[2022-09-24] MEDS: MULTIVITAMINS,THERAPEUTIC TABLET PO SCH (08:46)
[2022-09-24] MEDS: BENZTROPINE MESYLATE 0.5 MG TABLET PO SCH ×3 (08:46→16:55)
[2022-09-24] MEDS: DIGOXIN 125 MCG TABLET PO SCH (08:46)
[2022-09-24] MEDS: risperiDONE 2 MG TABLET PO SCH ×2 (08:46→20:25)
[2022-09-24] MEDS: CLOPIDOGREL 75 MG TABLET PO SCH (08:47)
[2022-09-24] MEDS: LISINOPRIL 20 MG TABLET PO SCH (08:47)
[2022-09-24] MEDS: GLUCERNA SHAKE 237 ML CAN PO SCH (08:47)
[2022-09-24 16:00] VITALS: BP 105/57
--- NOTE | 2022-09-24 16:28 | NUR ---
Received the patient sleeping in his room. Patient is isolative, not engage in verbal conversations, withdrawn, quiet, cooperative with nursing care, compliant with medications. Patient is A/O X 2 - 3 to person, place. Patient is encourage to verbalize concerns. Fall and safety precautions implemented.
[2022-09-24 20:17] VITALS: BP 100/54
[2022-09-24] MEDS: ATORVASTATIN 10 MG TABLET PO SCH (20:25)
--- NOTE | 2022-09-25 02:38 | NUR ---
Patient is calm and withdrawn. This property underwriter encouraged patient to go to the day room for a snack and watch some TV before bed. The patient complied. No labile behavior noted so far, medication compliant and the patient denied pain and SI. Safety Stratiges are in place. This property underwriter has been encouraging interactions with others and verbalization of his needs and feelings. Patient denied SI but was unwilling to engage in any meaningful conversation at this time.
[2022-09-25] MEDS: LEVOTHYROXINE SODIUM 50 MCG TABLET PO SCH (06:32)
[2022-09-25 07:30] VITALS: BP 115/64
[2022-09-25] MEDS: DIGOXIN 125 MCG TABLET PO SCH (08:20)
[2022-09-25] MEDS: risperiDONE 2 MG TABLET PO SCH (08:21)
[2022-09-25] MEDS: MULTIVITAMINS,THERAPEUTIC TABLET PO SCH (08:21)
[2022-09-25 08:22] VITALS: BP 115/64
[2022-09-25] MEDS: NICOTINE 21 MG/24HR PATCH TD SCH (08:22)
[2022-09-25] MEDS: CLOPIDOGREL 75 MG TABLET PO SCH (08:22)
[2022-09-25] MEDS: BENZTROPINE MESYLATE 0.5 MG TABLET PO SCH (08:22)
[2022-09-25] MEDS: LISINOPRIL 20 MG TABLET PO SCH (08:22)
[2022-09-25] MEDS: GLUCERNA SHAKE 237 ML CAN PO SCH (08:23)
--- NOTE | 2022-09-25 08:41 | NUR ---
[facility] Discharge Note: Pt will be discharged to [facility] [address] [place] [address] ([phone]) via Ambulance transportation at 11AM. [facility] spoke with Dilcia ram at the facility who states they are ready to accept the patient today. Pt is aware and agreeable with discharge plan. Pt does not have any family contact at this time. Pt is alert and oriented x3, is unable to plan for self-care at this time. However, pt is willing to accept care at SNF. Pt denies any suicidal or homicidal ideation. Pt will follow-up at the facility with Psychiatrist, Dr. Umana ([phone]) and Food And Beverage Order Clerk, Dr. Mosley. Pt presents with calm mood and congruent affect. PHARMACY: [place] ([phone]) [address] [facility] [address]. Pt presents with calm mood and congruent affect.
--- NOTE | 2022-09-25 11:35 | NUR ---
Received orders to discharge this patient to [address] [address] ([phone]) via Ambulance transportation at 11AM. Patient is agreeable with discharge plans, and signed all discharge documents. All belongings were returned to patient. Patient denies SI/HI AH/VH, SOB, pain or any discomfort. Emotional support provided. Fall and safety precautions implemented.
== END 2022-09-25 11:30 | DRG 885 ==
LOC: ER 18:25 → GPS 09-12 00:54
PROVIDERS: ADMIT Nurse Practitioner Psychiatric/Mental Health; ATTEND Internal Medicine
DX: F25.0 Schizoaffective disorder, bipolar type (principal); F02.84 Dementia in other diseases classified elsewhere, unspecified severity, with anxiety; G20 Parkinson's disease; I48.0 Paroxysmal atrial fibrillation; Z66 Do not resuscitate; J44.9 Chronic obstructive pulmonary disease, unspecified; F17.210 Nicotine dependence, cigarettes, uncomplicated; E78.5 Hyperlipidemia, unspecified; E03.9 Hypothyroidism, unspecified; Z79.01 Long term (current) use of anticoagulants; Z79.82 Long term (current) use of aspirin; Z79.899 Other long term (current) drug therapy; I11.9 Hypertensive heart disease without heart failure; I44.4 Left anterior fascicular block; Z88.8 Allergy status to other drugs, medicaments and biological substances; F15.11 Other stimulant abuse, in remission; Z79.890 Hormone replacement therapy; Z98.890 Other specified postprocedural states; F32.9 Major depressive disorder, single episode, unspecified; F12.10 Cannabis abuse, uncomplicated; Z20.822 Contact with and (suspected) exposure to COVID-19
CPT/HCPCS: 36415; 83735; 84100; 84443; 84484; 85025; 87400; 93005; A4663; G0480; J0696; J2060; J2405; J3486; J3490

== ENCOUNTER 2024-02-08 15:40 | Inpatient (IN) | payer MEDICARE, OTHER ==
[~2024-02-08] VITALS: Ht 165.1 cm; Wt 69.9 kg
[~2024-02-08 15:40] MED LIST changes: -APIX5TAB PO; +ATOR10TA PO; +BISA10SU61 RC; +CLOP75TA15 PO; +IBUP-1955 PO; +MULT-594 PO; +NA P133E RC; +NIFE-35 PO; +RISP1TAB7 PO; -SIMV-46 PO
[2024-02-08] MEDS ORDERED: ZIPRASIDONE MESYLATE 20 MG VIAL IM ONE (17:04)
[2024-02-08] MEDS: ZIPRASIDONE MESYLATE 20 MG VIAL IM ONE (17:10)
[2024-02-08 20:05] LABS: BASOPHILS % (AUTO) 0.5 % (0.0-2.0); EOSINOPHILS # (AUTO) 0.1 K/uL (0.0-0.7); EOSINOPHILS % (AUTO) 1.2 % (0.0-7.0); HEMOGLOBIN 12.2 g/dL (12.5-16.3); LYMPHOCYTES # (AUTO) 2.6 K/uL (0.8-4.8); MEAN CORPUSCULAR HEMOGLOBIN 31.2 uug (23.8-33.4); MEAN CORPUSCULAR HGB CONC 34 g/dL (32.5-36.3); MONOCYTES # (AUTO) 0.8 K/uL (0.1-1.30); MONOCYTES % (AUTO) 8.9 % (0.0-11.0); NEUTROPHILS # (AUTO) 5.1 K/uL (1.8-8.9); NEUTROPHILS % (AUTO) 59.4 % (38.5-71.5); PLATELET COUNT (AUTO) 384 K/uL (152-348); RED BLOOD CELL COUNT(AUTO) 3.91 MIL/uL (4.06-5.63); RED CELL DISTRIBUTION WIDTH 14.5 % (12.1-16.2); WHITE BLOOD COUNT (AUTO) 8.7 K/uL (3.6-10.2)
[2024-02-08 20:06] LABS: DIFFERENTIAL COMMENT 1
[2024-02-08 20:22] LABS: ALANINE AMINOTRANSFERASE 17 U/L (16-63); ALBUMIN 3.1 g/dL (3.4-5.0); ALKALINE PHOSPHATASE 59 U/L (50-136); ASPARTATE AMINOTRANSFERASE 6 U/L (15-37); BILIRUBIN,DIRECT 0.1 mg/dL (0.0-0.2); BILIRUBIN,TOTAL 0.5 mg/dL (0.2-1.0); CALCIUM 9.2 mg/dL (8.5-10.1); CARBON DIOXIDE 27 mmol/L (21-32); CHLORIDE 105 mmol/L (98-107); GLUCOSE 105 mg/dL (74-106); POTASSIUM 3.5 mmol/L (3.5-5.1); SODIUM SERUM 140 mmol/L (136-145); TOTAL PROTEIN, SERUM 6.8 g/dL (6.4-8.2); UREA NITROGEN, BLOOD 15 mg/dL (7-18)
[2024-02-08 20:27] LABS: ACETAMINOPHEN < 2.0 ug/mL (10-30)
[2024-02-08 20:45] LABS: ETHANOL < 3 MG/DL (0-10)
[2024-02-08 22:11] VITALS: BP 130/69; TEMP 98.4; O2SAT 98
[2024-02-08] MEDS: BLOOD SUGAR DIAGNOSTIC 1 EACH STRIP VI ONE (22:26)
[2024-02-08] MEDS ORDERED: MAG HYDROX/AL HYDROX/SIMETH 30 ML LIQUID UDC PO PRN (22:30)
[2024-02-08] MEDS ORDERED: TEMAZEPAM 7.5 MG CAPSULE PO PRN (22:30)
[2024-02-08] MEDS ORDERED: ACETAMINOPHEN 325 MG TABLET PO PRN (22:30)
[2024-02-09 07:44] VITALS: BP 113/68; TEMP 98; O2SAT 98
[2024-02-09] MEDS: LORAZEPAM 0.5 MG TABLET PO PRN (08:02)
[2024-02-09] MEDS: NICOTINE 21 MG/24HR PATCH TD SCH (09:40)
[2024-02-09] MEDS: risperiDONE 2 MG TABLET PO SCH ×2 (11:25→20:48)
[2024-02-09] MEDS: OXCARBAZEPINE 150 MG TABLET PO SCH (12:49)
[2024-02-09 13:12] LABS: *BILIRUBIN,URIN 1+ (NEGATIVE); *BLOOD, URINE NEGATIVE (NEGATIVE); *CLARITY,URINE CLEAR (CLEAR); *COLOR,URINE AMBER (YELLOW); *KETONES,URINE 1+ (NEGATIVE); *PROTEIN,URINE TRACE (NEGATIVE); LEUKOCYTE ESTERASE ,URINE NEGATIVE (NEGATIVE); NITRITE, URINE NEGATIVE (NEGATIVE); UGLUCOSE NEGATIVE (NEGATIVE)
[2024-02-09 13:18] LABS: *AMPHETAMINE, URINE POSITIVE (NEGATIVE); *BARBITURATE, URINE NEGATIVE (NEGATIVE); *BENZODIAZEPINE, URINE NEGATIVE (NEGATIVE); *CANNABINOID, URINE POSITIVE (NEGATIVE); *COCCAINE, URINE NEGATIVE (NEGATIVE); *OPIATE, URINE NEGATIVE (NEGATIVE); *PHENCYCLIDINE SCREEN,URINE NEGATIVE (NEGATIVE); FENTANYL, URINE NEGATIVE (NEGATIVE)
[2024-02-09 13:34] LABS: BACTERIA,URINE MODERATE /HPF (NONE SEEN); WBC,URINE 0-3 /HPF (0-3)
[2024-02-09 13:35] LABS: CALCIUM OXALATE CRYSTALS,UR FEW /HPF (NONE SEEN); MUCUS,URINE MANY /LPF (0-FEW); SQUAMOUS EPITHELIAL CELL,UR MODERATE /HPF (NONE SEEN)
[2024-02-09 15:47] VITALS: BP 99/66; TEMP 98.8; O2SAT 99
[2024-02-09] MEDS ORDERED: risperiDONE 2 MG TABLET PO SCH (17:00)
[2024-02-09 20:00] VITALS: BP 131/61; TEMP 98.1; O2SAT 98
[2024-02-10 07:50] VITALS: BP 118/59; TEMP 98; O2SAT 98
[2024-02-10] MEDS ORDERED: PANT40TA2 PO (14:35)
[2024-02-10] MEDS ORDERED: LEVO50TA8 PO (14:35)
[2024-02-10] MEDS ORDERED: AMIO200T7 PO (14:35)
[2024-02-10] MEDS ORDERED: LISI20TA30 PO (14:40)
[2024-02-10] MEDS ORDERED: DOCU250C16 PO (14:40)
[2024-02-10] MEDS ORDERED: DOCUSATE SODIUM 250 MG CAPSULE PO PRN (15:00)
[2024-02-10] MEDS ORDERED: BISACODYL 10 MG SUPP.RECT RC PRN (15:00)
[2024-02-10 15:19] VITALS: BP 111/59; TEMP 98; O2SAT 98
[2024-02-10 20:00] VITALS: BP 128/63; TEMP 97.8; O2SAT 96
[2024-02-11] MEDS: LEVOTHYROXINE SODIUM 50 MCG TABLET PO SCH (07:22)
[2024-02-11 07:30] VITALS: BP 145/91; TEMP 98; O2SAT 98
[2024-02-11] MEDS: AMIODARONE HCL 200 MG TABLET PO SCH (08:56)
[2024-02-11] MEDS: MULTIVIT, IRON, MIN NO. 8, FA TABLET PO SCH (08:56)
[2024-02-11] MEDS: CLOPIDOGREL 75 MG TABLET PO SCH (08:57)
[2024-02-11] MEDS: OXCARBAZEPINE 300 MG TABLET PO SCH (13:58)
[2024-02-11 15:05] VITALS: BP 131/66; TEMP 98.4; O2SAT 99
[2024-02-11 20:00] VITALS: BP 110/60; TEMP 97.7; O2SAT 97
[2024-02-12 08:12] VITALS: BP 131/71; TEMP 98.1; O2SAT 99
[2024-02-12 16:27] VITALS: BP 124/58; TEMP 98.2; O2SAT 99
[2024-02-12 22:29] VITALS: BP 103/57; TEMP 98.1; O2SAT 99
[2024-02-13 09:08] VITALS: BP 124/69; TEMP 98.2; O2SAT 99
[2024-02-13 16:50] VITALS: BP 125/70; TEMP 98.1; O2SAT 97
[2024-02-13 19:56] VITALS: BP 130/64; TEMP 98.1; O2SAT 98
[2024-02-14 08:27] VITALS: BP 151/81; TEMP 98; O2SAT 98
[2024-02-14 16:25] VITALS: BP 117/69; TEMP 98.1; O2SAT 98
[2024-02-14 19:41] VITALS: BP 146/71; TEMP 98.2; O2SAT 96
[2024-02-15 08:03] VITALS: BP 143/74; TEMP 98; O2SAT 98
[2024-02-15 15:34] VITALS: BP 109/57; TEMP 98; O2SAT 98
[2024-02-15 19:42] VITALS: BP 136/62; TEMP 98.1; O2SAT 98
[2024-02-15] MEDS: risperiDONE 2 MG TABLET PO SCH (20:37)
[2024-02-16 07:30] VITALS: BP 113/64; TEMP 98; O2SAT 97
[2024-02-16 16:17] VITALS: BP 146/77; TEMP 98; O2SAT 99
[2024-02-16 16:18] VITALS: BP 150/70; TEMP 98; O2SAT 97
[2024-02-16 16:20] VITALS: BP 147/80; TEMP 98; O2SAT 99
[2024-02-16 20:00] VITALS: BP 128/65; TEMP 98; O2SAT 95
[2024-02-17 08:01] VITALS: BP 144/71; TEMP 98.2; O2SAT 98
== END 2024-02-17 11:45 | DRG 885 ==
LOC: ER 15:42 → GPS 21:50
PROVIDERS: ADMIT Psychiatry & Neurology Psychosomatic Medicine; ATTEND Nurse Practitioner Family
DX: F25.0 Schizoaffective disorder, bipolar type (principal); E44.1 Mild protein-calorie malnutrition; J44.9 Chronic obstructive pulmonary disease, unspecified; E78.5 Hyperlipidemia, unspecified; I48.0 Paroxysmal atrial fibrillation; Z79.899 Other long term (current) drug therapy; F15.10 Other stimulant abuse, uncomplicated; I25.10 Atherosclerotic heart disease of native coronary artery without angina pectoris; Z86.73 Personal history of transient ischemic attack (TIA), and cerebral infarction without residual deficits; Z91.199 Patient's noncompliance with other medical treatment and regimen due to unspecified reason; M19.90 Unspecified osteoarthritis, unspecified site; Z66 Do not resuscitate; G20.A1 Parkinson's disease without dyskinesia, without mention of fluctuations; F17.210 Nicotine dependence, cigarettes, uncomplicated; E88.09 Other disorders of plasma-protein metabolism, not elsewhere classified; E03.9 Hypothyroidism, unspecified; Z79.02 Long term (current) use of antithrombotics/antiplatelets; Z79.890 Hormone replacement therapy; I10 Essential (primary) hypertension; D64.9 Anemia, unspecified; R42 Dizziness and giddiness; K21.9 Gastro-esophageal reflux disease without esophagitis; F41.1 Generalized anxiety disorder
CPT/HCPCS: 36415; 84484; 85025; 93005; G0480; J3486